=== PATIENT | female | born 1940 | race Caucasian/White ===

== ENCOUNTER 2020-04-28 09:39 | Outpatient (REF) | payer MEDICARE, BC, SELFPAY ==
[2020-04-28 11:19] LABS: Cholesterol 263 mg/dL; HDL Cholesterol 61 mg/dL; LDL Cholesterol Calculated 182 mg/dl; Triglycerides 100 mg/dL
[2020-04-28 11:42] LABS: Free T4 (Free Thyroxine) 1.31 ng/dL (0.71-1.85); Thyroid Stimulating Hormone 0.45 mIU/mL (0.32-4.0)
== END 2020-04-28 09:40 | disposition home or self-care (01) ==
LOC: HO.LAB 09:39
PROVIDERS: PCP Internal Medicine; Visit Provider Internal Medicine Endocrinology, Diabetes & Metabolism
DX: E03.9 Hypothyroidism, unspecified (principal); I10 Essential (primary) hypertension
CPT/HCPCS: 80061; 84439; 84443

== ENCOUNTER 2020-07-18 10:15 | Outpatient (REF) | payer MEDICARE, BC, SELFPAY ==
[2020-07-18 11:48] LABS: Cholesterol 284 mg/dL; HDL Cholesterol 60 mg/dL; LDL Cholesterol Calculated 189 mg/dl; Triglycerides 176 mg/dL
[2020-07-18 12:15] LABS: Free T4 (Free Thyroxine) 1.04 ng/dL (0.71-1.85)
== END 2020-07-18 10:16 | disposition home or self-care (01) ==
LOC: HO.HMGCLDS 10:15
PROVIDERS: PCP Internal Medicine; Visit Provider Internal Medicine Endocrinology, Diabetes & Metabolism
DX: E03.9 Hypothyroidism, unspecified (principal); E11.9 Type 2 diabetes mellitus without complications
CPT/HCPCS: 36415; 80061; 84439; 84443

== ENCOUNTER 2020-08-25 09:12 | Outpatient (REF) | payer MEDICARE, BC, SELFPAY ==
[2020-08-25 10:28] LABS: Cholesterol 256 mg/dL; HDL Cholesterol 60 mg/dL; LDL Cholesterol Calculated 167 mg/dl; Triglycerides 145 mg/dL
== END 2020-08-25 09:13 | disposition home or self-care (01) ==
LOC: HO.LAB 09:12
PROVIDERS: PCP Internal Medicine; Visit Provider Internal Medicine Cardiovascular Disease
DX: Z86.39 Personal history of other endocrine, nutritional and metabolic disease (principal)
CPT/HCPCS: 36415; 80061

== ENCOUNTER → 2020-11-20 09:43 | Outpatient (BNVA) | payer MEDICARE, BC, SELFPAY | PROVIDERS: PCP Internal Medicine; Visit Provider Internal Medicine Endocrinology, Diabetes & Metabolism | DX: E03.9 Hypothyroidism, unspecified (principal) | CPT/HCPCS: 99212 ==

== ENCOUNTER 2020-11-23 14:12 | Outpatient (REF) | payer MEDICARE, BC, SELFPAY ==
[2020-11-23 15:55] LABS: Free T4 (Free Thyroxine) 1.28 ng/dL (0.71-1.85); Thyroid Stimulating Hormone 0.32 uIU/mL (0.32-4.0)
== END 2020-11-23 14:13 | disposition home or self-care (01) ==
LOC: HO.LAB 14:12
PROVIDERS: PCP Internal Medicine; Visit Provider Internal Medicine Endocrinology, Diabetes & Metabolism
DX: E03.9 Hypothyroidism, unspecified (principal)
CPT/HCPCS: 36415; 84439; 84443

== ENCOUNTER → 2021-11-20 09:47 | Outpatient (BNVA) | payer MEDICARE, BC, SELFPAY | PROVIDERS: PCP Internal Medicine; Visit Provider Nurse Practitioner Gerontology | DX: E03.9 Hypothyroidism, unspecified (principal) | CPT/HCPCS: 99212 ==

== ENCOUNTER 2021-11-23 08:14 | Outpatient (REF) | payer MEDICARE, BC, SELFPAY ==
[2021-11-23 09:44] LABS: Free T4 (Free Thyroxine) 1.13 ng/dL (0.71-1.85); Thyroid Stimulating Hormone 0.96 uIU/mL (0.32-4.0)
== END 2021-11-23 08:15 | disposition home or self-care (01) ==
LOC: HO.LAB 08:14
PROVIDERS: PCP Internal Medicine; Visit Provider Nurse Practitioner Gerontology
DX: E03.9 Hypothyroidism, unspecified (principal)
CPT/HCPCS: 36415; 84439; 84443

== ENCOUNTER 2022-03-22 07:38 | Outpatient (REF) | payer MEDICARE, BC, SELFPAY ==
[2022-03-22 07:59] LABS: MANUAL DIFF FLAG NO
[2022-03-22 08:15] LABS: Basophils Absolute Auto 0.1 X10*3/uL (0.0-0.2); Basophils Percent Auto 0.7 % (0-2); Eosinophils Absolute Auto 0.1 X10*3/uL (0.0-0.4); Eosinophils Percent Auto 1.2 % (0-4); Hematocrit 42.8 % (37.0-47.0); Hemoglobin 14.3 g/dl (12.0-16.0); Imm Gran Abs Auto 0.02 X10*3/uL (0.00-0.03); Imm Gran Pct Auto 0.3 % (0.0-0.4); Lymphocytes Absolute Auto 2.1 X10*3/uL (1.2-4.9); Lymphocytes Percent Auto 31.2 % (20-40); Mean Corpuscular HGB Conc 33.4 g/dl (31.0-35.0); Mean Corpuscular Hemoglobin 29.9 pg (27.0-33.0); Mean Corpuscular Volume 89.5 fL (80.0-98.0); Mean Platelet Volume 11.1 fL (9.4-12.3); Monocytes Absolute Auto 0.5 X10*3/uL (0.1-1.2); Monocytes Percent Auto 6.7 % (2-11); Neutrophils Absolute Auto 4.1 x10*3/uL (2.0-8.3); Neutrophils Percent Auto 59.9 % (45-73); Platelet Count 220 X10*3/uL (160-400); Red Blood Count 4.78 X10*6/uL (4.20-5.50); Red Cell Distribution Width 13.2 % (11.0-16.0); White Blood Count 6.8 X10*3/uL (4.8-10.8)
[2022-03-22 08:45] LABS: Alanine Aminotransferase 15 U/L (0-31); Albumin Level 3.9 g/dL (3.5-5.0); Alkaline Phosphatase 92 U/L (39-117); Anion Gap 17 (12-20); Aspartate Amino Transferase 15 U/L (5-31); Bilirubin Total 0.7 mg/dL (0.0-1.0); Blood Urea Nitrogen 23 mg/dL (9-16); Calcium 9.2 mg/dL (8.4-10.2); Carbon Dioxide 29 mmol/L (22-29); Chloride 101 mmol/L (96-108); Cholesterol 310 mg/dL; Estimated Glomerular Filt Rate > 60; Glucose Fasting 92 mg/dL (60-99); HDL Cholesterol 59 mg/dL; LDL Cholesterol Calculated 227 mg/dl; Potassium 3.5 mmol/L (3.3-5.1); Sodium 143 mmol/L (135-145); Total Protein 6.5 g/dL (6.5-8.0); Triglycerides 121 mg/dL
[2022-03-22 09:06] LABS: Thyroid Stimulating Hormone 0.81 uIU/mL (0.32-4.0)
== END 2022-03-22 07:39 | disposition home or self-care (01) ==
LOC: HO.LAB 07:38
PROVIDERS: PCP Internal Medicine; Visit Provider Internal Medicine
DX: Z00.00 Encounter for general adult medical examination without abnormal findings (principal); Z13.0 Encounter for screening for diseases of the blood and blood-forming organs and certain disorders involving the immune mechanism
CPT/HCPCS: 36415; 80053; 80061; 84443; 85025

== ENCOUNTER 2022-09-20 10:23 | Outpatient (REF) | payer MEDICARE, BC, SELFPAY ==
[2022-09-20 10:34] LABS: MANUAL DIFF FLAG NO
[2022-09-20 11:28] LABS: Basophils Percent Auto 0.6 % (0-2); Eosinophils Absolute Auto 0.1 X10*3/uL (0.0-0.4); Eosinophils Percent Auto 0.9 % (0-4); Hematocrit 44.6 % (37.0-47.0); Hemoglobin 14.9 g/dl (12.0-16.0); Imm Gran Abs Auto 0.01 X10*3/uL (0.00-0.03); Imm Gran Pct Auto 0.2 % (0.0-0.4); Lymphocytes Percent Auto 30.3 % (20-40); Mean Corpuscular HGB Conc 33.4 g/dl (31.0-35.0); Mean Corpuscular Volume 92.9 fL (80.0-98.0); Mean Platelet Volume 11.6 fL (9.4-12.3); Monocytes Absolute Auto 0.5 X10*3/uL (0.1-1.2); Monocytes Percent Auto 7.5 % (2-11); Neutrophils Absolute Auto 3.9 x10*3/uL (2.0-8.3); Neutrophils Percent Auto 60.5 % (45-73); Platelet Count 239 X10*3/uL (160-400); Red Cell Distribution Width 12.5 % (11.0-16.0); White Blood Count 6.5 X10*3/uL (4.8-10.8)
[2022-09-20 12:01] LABS: Alanine Aminotransferase 13 U/L (0-31); Albumin Level 4.1 g/dL (3.5-5.0); Alkaline Phosphatase 82 U/L (39-117); Anion Gap 17 (12-20); Aspartate Amino Transferase 17 U/L (5-31); Blood Urea Nitrogen 17 mg/dL (9-16); Calcium 9.5 mg/dL (8.4-10.2); Carbon Dioxide 27 mmol/L (22-29); Chloride 103 mmol/L (96-108); Cholesterol 310 mg/dL; Estimated Glomerular Filt Rate > 60; Glucose Fasting 94 mg/dL (60-99); HDL Cholesterol 57 mg/dL; LDL Cholesterol Calculated 214 mg/dl; Potassium 3.9 mmol/L (3.3-5.1); Sodium 143 mmol/L (135-145); Total Protein 6.3 g/dL (6.5-8.0); Triglycerides 197 mg/dL
[2022-09-20 12:17] LABS: Thyroid Stimulating Hormone 0.31 uIU/mL (0.32-4.0)
== END 2022-09-20 10:24 | disposition home or self-care (01) ==
LOC: HO.LAB 10:23
PROVIDERS: PCP Internal Medicine; Visit Provider Internal Medicine
DX: Z13.0 Encounter for screening for diseases of the blood and blood-forming organs and certain disorders involving the immune mechanism (principal); E03.9 Hypothyroidism, unspecified; E78.5 Hyperlipidemia, unspecified; I10 Essential (primary) hypertension
CPT/HCPCS: 36415; 80053; 80061; 84443; 85025

== ENCOUNTER 2023-01-03 08:09 | Outpatient (REF) | payer MEDICARE, BC, SELFPAY ==
[2023-01-03 08:44] LABS: MANUAL DIFF FLAG NO
[2023-01-03 08:51] LABS: Basophils Percent Auto 0.6 % (0-2); Eosinophils Absolute Auto 0.1 X10*3/uL (0.0-0.4); Eosinophils Percent Auto 1.1 % (0-4); Hematocrit 39.9 % (37.0-47.0); Hemoglobin 13.5 g/dl (12.0-16.0); Imm Gran Abs Auto 0.01 X10*3/uL (0.00-0.03); Imm Gran Pct Auto 0.2 % (0.0-0.4); Lymphocytes Absolute Auto 1.5 X10*3/uL (1.2-4.9); Mean Corpuscular HGB Conc 33.8 g/dl (31.0-35.0); Mean Corpuscular Hemoglobin 31.4 pg (27.0-33.0); Mean Corpuscular Volume 92.8 fL (80.0-98.0); Monocytes Absolute Auto 0.4 X10*3/uL (0.1-1.2); Monocytes Percent Auto 8.2 % (2-11); Neutrophils Absolute Auto 3.2 x10*3/uL (2.0-8.3); Neutrophils Percent Auto 61.9 % (45-73); Platelet Count 178 X10*3/uL (160-400); Red Cell Distribution Width 12.2 % (11.0-16.0); White Blood Count 5.2 X10*3/uL (4.8-10.8)
[2023-01-03 09:23] LABS: Alanine Aminotransferase 12 U/L (0-31); Albumin Level 3.9 g/dL (3.5-5.0); Alkaline Phosphatase 86 U/L (39-117); Anion Gap 12 (12-20); Aspartate Amino Transferase 15 U/L (5-31); Blood Urea Nitrogen 13 mg/dL (9-16); Calcium 9.7 mg/dL (8.4-10.2); Carbon Dioxide 29 mmol/L (22-29); Chloride 106 mmol/L (96-108); Cholesterol 253 mg/dL; Estimated Glomerular Filt Rate > 60; Glucose Fasting 96 mg/dL (60-99); HDL Cholesterol 52 mg/dL; LDL Cholesterol Calculated 173 mg/dl; Potassium 3.9 mmol/L (3.3-5.1); Sodium 143 mmol/L (135-145); Total Protein 6.5 g/dL (6.5-8.0); Triglycerides 142 mg/dL
== END 2023-01-03 08:10 | disposition home or self-care (01) ==
LOC: HO.LAB 08:09
PROVIDERS: PCP Internal Medicine; Visit Provider Internal Medicine
DX: E03.9 Hypothyroidism, unspecified (principal); N28.9 Disorder of kidney and ureter, unspecified; D64.9 Anemia, unspecified; E78.5 Hyperlipidemia, unspecified
CPT/HCPCS: 36415; 80053; 80061; 84443; 85025

== ENCOUNTER 2023-02-26 03:24 | Emergency (ER) | payer MEDICARE, BC, SELFPAY ==
--- NOTE | 2023-02-26 | ECG_ITS ---
Test Reason : ABD PAIN Blood Pressure : / mmHG Vent. Rate : 070 BPM Atrial Rate : 070 BPM P-R Int : 166 ms QRS Dur : 072 ms QT Int : 402 ms P-R-T Axes : 060 -52 -06 degrees QTc Int : 434 ms Normal sinus rhythm Left axis deviation Abnormal ECG When compared with ECG of 20-NOV-2012 09:00, Heart rate has increased Referred By: Generic ED Physician Electronically Signed By:NICK CASTRO
--- NOTE | ~2023-02-26 | CT_ITS ---
EXAMINATION: CT ABDOMEN AND PELVIS WITHOUT CONTRAST CLINICAL INFORMATION: Left lower quadrant pain, hematuria, rule out ureterolithiasis. COMPARISON: None available. TECHNIQUE: Multidetector volumetric imaging was performed from the superior aspect of the liver through the pubic symphysis. Sagittal and coronal reformatted images were obtained on the technologist's workstation. This CT examination was performed using dose optimization techniques as appropriate, variously including the following: *Automated exposure control *Adjustment of mA and/or kV according to patient size (this includes techniques or standardized protocols for targeted exams where dose is matched to indication/reason for exam; i.e. extremities or head) *Use of iterative reconstruction technique DLP: 745 mGy-cm FINDINGS: LUNG BASES: The visualized lung bases are clear. There is a moderate to large hiatal hernia. A cardiac pacemaker is present with its lead in the right ventricle. LIVER, GALLBLADDER, AND BILIARY TREE: The liver is normal in size, shape, and attenuation. No focal hepatic lesion or biliary ductal dilatation is present. The gallbladder is unremarkable with no evidence of radiopaque gallstones, gallbladder wall thickening, or obvious pericholecystic inflammatory changes. PANCREAS: Unremarkable. SPLEEN: Not enlarged. A punctate granuloma is evident within the spleen ADRENAL GLANDS: Unremarkable. KIDNEYS AND URETERS: Moderate left hydronephrosis is present to the level of a punctate calculus at the left ureteropelvic junction. Left perirenal infiltration is present. The distal left ureter is collapsed. No right renal calculi are evident. An exophytic 21 mm round mass extends from the lateral interpolar cortex of the left kidney, isodense to the renal parenchyma. There is a 13 mm low-density lesion in the lower pole cortex of the right kidney, too small to characterize on this noncontrast examination. BLADDER: Unremarkable. GASTROINTESTINAL TRACT: The small and large bowel are unremarkable. The appendix is nonvisualized. ABDOMINAL WALL: No significant hernia is appreciated. LYMPH NODES: Normal. VASCULAR: There are aortoiliac calcifications but no aneurysm is evident. PELVIC VISCERA: The uterus is atrophic. There are no adnexal masses. OSSEOUS STRUCTURES: Moderate to severe degenerative disc disease is present throughout the lumbar spine, and in the lower thoracic spine, most prominent at T8-T9 and T9-T10. There is an intraosseous hemangioma in the L1 vertebral body. CT/CT abdomen pelvis wo IV con IMPRESSION: 1. Acute left obstructive uropathy with moderate hydronephrosis to the level of a punctate left ureteropelvic junction calculus. 2. Exophytic left renal 21 mm mass, incompletely characterized on this noncontrast study but isodense to parenchyma. Pre and postcontrast abdominal CT or MR is suggested to further characterize this lesion, as a solid renal mass (neoplasm) is not excluded. A low density 13 mm lesion in the lower pole the right kidney is too small to characterize. 3. Incidental findings include thoracolumbar degenerative disc disease, hiatal hernia formation, and splenic granuloma. 4. The above acute findings were reported at the time of interpretation on 02/26/2023 at 9:[address] Aries Gama, in the [facility]. Fleischner guidelines were followed.
--- NOTE | ~2023-02-26 | CT_ITS ---
EXAMINATION: CT ABDOMEN AND PELVIS WITH CONTRAST CLINICAL INFORMATION: Left flank pain, abnormal noncontrast CT with left renal mass COMPARISON: Prior noncontrast CT of earlier on 02/26/2023 TECHNIQUE: Multidetector volumetric images were obtained from the superior aspect of the liver through the pubic symphysis following administration 85 mL of Omnipaque 350 intravenous contrast. Sagittal and coronal reformatted images were obtained on the technologist's workstation. Oral contrast: No This CT examination was performed using dose optimization techniques as appropriate, variously including the following: *Automated exposure control *Adjustment of mA and/or kV according to patient size (this includes techniques or standardized protocols for targeted exams where dose is matched to indication/reason for exam; i.e. extremities or head) *Use of iterative reconstruction technique DLP: 780 mGy-cm FINDINGS: LUNG BASES: Minimal linear atelectasis or scar at the right lung base. Moderate to large hiatal hernia. Pacemaker lead in the right ventricle. LIVER, GALLBLADDER, AND BILIARY TREE: The liver is normal in size, shape, and attenuation. No focal hepatic lesion or biliary ductal dilatation is present. The gallbladder is unremarkable with no evidence of radiopaque gallstones, gallbladder wall thickening, or obvious pericholecystic inflammatory changes. PANCREAS: Unremarkable. SPLEEN: Punctate splenic granuloma. ADRENAL GLANDS: Unremarkable. KIDNEYS AND URETERS: Moderate left hydronephrosis is again evident to the level of the left ureteropelvic junction where a punctate calculus is again visualized. The left ureter is collapsed. The previously seen exophytic left renal mid pole 23 mm lesion does not enhance and reflects a cyst. Similarly, an 11 mm hyperdense lesion in the lower pole the left kidney does not enhance and reflects a hemorrhagic cyst. A 14 mm cyst is present in the lower pole of the right kidney. Other small low density lesions in both kidneys are presumably cysts, though too small to characterize. BLADDER: Unremarkable. GASTROINTESTINAL TRACT: The small and large bowel are unremarkable. The appendix is nonvisualized. ABDOMINAL WALL: No significant hernia is appreciated. LYMPH NODES: Normal. VASCULAR: Aortoiliac atheromatous atherosclerotic calcifications but no aneurysm. PELVIC VISCERA: Atrophic uterus. No adnexal masses. OSSEOUS STRUCTURES: Moderate to severe degenerative changes in the lower thoracic and lumbar spine. No suspicious bone lesions. CT/CT abdomen pelvis w IV con IMPRESSION: 1. Acute left obstructive uropathy with moderate hydronephrosis to the level of a punctate calculus at the left ureteropelvic junction. 2. Bilateral renal cysts, but no enhancing renal masses. No additional imaging follow-up is needed. 3. No significant change since precontrast CT of earlier on 02/26/2023. Fleischner guidelines were followed.
[2023-02-26 03:27] VITALS: BP 180/90; PULSE 72; O2SAT 98
[2023-02-26 03:34] VITALS: BP 187/67; PULSE 68; RESP 18; TEMP 36.5; O2SAT 98; BMI 40.7
[2023-02-26 03:53] LABS: MANUAL DIFF FLAG NO
[2023-02-26 03:54] LABS: Basophils Percent Auto 0.2 % (0-2); Eosinophils Percent Auto 0.3 % (0-4); Hematocrit 37.4 % (37.0-47.0); Hemoglobin 12.2 g/dl (12.0-16.0); Imm Gran Abs Auto 0.03 X10*3/uL (0.00-0.03); Imm Gran Pct Auto 0.3 % (0.0-0.4); Lymphocytes Percent Auto 10.3 % (20-40); Mean Corpuscular HGB Conc 32.6 g/dl (31.0-35.0); Mean Corpuscular Hemoglobin 29.4 pg (27.0-33.0); Mean Corpuscular Volume 90.1 fL (80.0-98.0); Mean Platelet Volume 11.3 fL (9.4-12.3); Monocytes Absolute Auto 0.6 X10*3/uL (0.1-1.2); Monocytes Percent Auto 5.8 % (2-11); Neutrophils Absolute Auto 8.4 x10*3/uL (2.0-8.3); Neutrophils Percent Auto 83.1 % (45-73); Platelet Count 231 X10*3/uL (160-400); Red Blood Count 4.15 X10*6/uL (4.20-5.50); Red Cell Distribution Width 12.6 % (11.0-16.0); White Blood Count 10.1 X10*3/uL (4.8-10.8)
[2023-02-26 04:15] LABS: Alanine Aminotransferase 12 U/L (0-31); Alkaline Phosphatase 106 U/L (39-117); Anion Gap 15 (12-20); Aspartate Amino Transferase 24 U/L (5-31); Bilirubin Direct 0.2 mg/dL (0.0-0.5); Bilirubin Total 0.6 mg/dL (0.0-1.0); Blood Urea Nitrogen 24 mg/dL (9-16); Calcium 9.9 mg/dL (8.4-10.2); Carbon Dioxide 25 mmol/L (22-29); Chloride 105 mmol/L (96-108); Creatinine Clr Calc Pharmacy 54.5; Estimated Glomerular Filt Rate > 60; Glucose Random 158 mg/dL (60-115); Lipase 24 U/L (8-78); Potassium 3.8 mmol/L (3.3-5.1); Sodium 141 mmol/L (135-145)
--- NOTE | 2023-02-26 05:42 | PC.NURSE ---
pt reporting pain and discomfort to LLQ abdomen, pt offered tylenol or motrin for the pain but declines. offered warm blanket/warm heating pack but declines. call banks within reach. pt waiting to be seen by ED provider for further orders.
[2023-02-26 06:20] VITALS: BP 174/82; PULSE 74; RESP 16; TEMP 37.1; O2SAT 95
[2023-02-26 07:39] LABS: Appearance Urine Clear; Glucose Urine UA Negative (Negative); Leukocyte Esterase Urine Trace (Negative); Nitrite Urine Negative (Negative); PH 6.5 (5.0-9.0); UMIC TRIGGER UACC YES; Urine Blood Large (3+) (Negative); Urine Ketones 15 mg/dL (Negative); Urine Protein 30 (1+) mg/dL (Neg-Trace)
[2023-02-26 07:40] LABS: Color Urine PINK
[2023-02-26 07:41] LABS: Bacteria Urine None Seen (None Seen); Hyaline Casts Urine 0-2 /LPF (0-2); RBC Urine >20 /HPF (0-2); Squamous Epithelial Cell Urine 0-2 /HPF (0-2); WBC Urine 0-5 /HPF (0-5)
--- NOTE | 2023-02-26 08:27 | ED_ITS ---
HPI - Abdominal Pain General Chief Complaint: Abdominal Pain Stated Complaint: abd pain Time Seen by Provider: 02/26/23 06:57 Source: patient and EMS Mode of arrival: EMS Limitations: no limitations History of Present Illness HPI narrative: 82-year-old female presents with left lower quadrant abdominal pain. Pain started all the sudden last night. Pain is severe. The pain is constant. Worsened by movement. Not associated with urinary frequency, urgency or dysuria. It is associated with nausea vomiting. She denies any diarrhea constipation. Pain does not radiate. No prior treatment. She was brought in by EMS. Patient has noted some blood tinged urine. Related Data Home Medications Medication Instructions Recorded Confirmed cholecalciferol (vitamin D3) 25 25 mcg PO DAILY 05/17/20 01/08/23 mcg (1,000 unit) capsule esomeprazole magnesium 20 mg 20 mg PO DAILY 05/17/20 01/08/23 capsule,delayed release (Nexium 24HR) ysyxuscr-oakfiqx-aibl-lutein tablet 1 tab PO DAILY 11/20/21 01/08/23 Previous Rx's Medication Instructions Recorded Synthroid 88 mcg tablet 88 mcg PO DAILY 90 days #90 tabs 08/13/22 (levothyroxine) metoprolol tartrate 50 mg tablet 50 mg PO BID #180 tabs 12/29/22 Allergies Allergy/AdvReac Type Severity Reaction Status Date / Time AZALEA Inhibitors Allergy Unknown Unknown Verified 02/26/23 03:40 acetaminophen [From Vicodin] Allergy Unknown Unknown Verified 02/26/23 03:40 almond Allergy Unknown Unknown Verified 02/26/23 03:40 amoxicillin Allergy Unknown GI upset Verified 02/26/23 03:40 azithromycin Allergy Unknown Unknown Verified 02/26/23 03:40 colesevelam [WelChol] Allergy Unknown Unknown Verified 02/26/23 03:40 hydrocodone [From Vicodin] Allergy Unknown Unknown Verified 02/26/23 03:40 lactose Allergy Unknown Unknown Verified 02/26/23 03:40 Review of Systems Review of Systems CONSTITUTIONAL: Denies weight loss, fever and chills. HEENT: Denies changes in vision and hearing. RESPIRATORY: Denies SOB and cough. CV: Denies palpitations no CP. GI: + abdominal pain, nausea, vomiting - diarrhea. : Denies dysuria and urinary frequency. MSK: Denies myalgia and joint pain. SKIN: Denies rash and pruritus. NEUROLOGICAL: Denies headache and syncope. PSYCHIATRIC: Denies recent changes in mood. Denies anxiety and depression. All other ROS are negative unless in HPI PMFSH Past Medical History Medical History Hyperlipidemia Hypothyroidism Surgical History Cardiac pacemaker History of appendectomy Family History Family History Father Myocardial infarction Mother CHF (congestive heart failure) Social History Social History Housing: Apartment Alcohol intake: never Patient Tobacco Use Status: Never used Tobacco Smoked in Last 30 Days: No e-Cigarette/Vaping Use: Never Used Second Hand Smoke Exposure: No Use of substances other than those prescribed or required for medical reasons: No Advance Directives: No Advance Directives Information Provided: No service: No Current occupational status: retired Cognitive needs: No Hearing needs: No Vision needs: Yes Physical Exam ED Vital Signs: Vital Signs - 24 hr 02/26/23 03:34 02/26/23 06:20 02/26/23 08:44 Temperature 97.7 F 98.7 F 98.1 F Pulse Rate 68 74 81 Respiratory Rate 18 16 16 Blood Pressure 187/67 H 174/82 H 153/84 H Pulse Oximetry 98 95 95 Oxygen Delivery Method Room Air Room Air Room Air BMI result Body Mass Index 40.7 GEN: Well developed, no acute distress, alert, oriented HEENT: Normocephalic, atraumatic, normal external ears, nose appears normal, no oropharyngeal edema or exudates Eyes: Normal to appearance Neck: Supple, no lymphadenopathy Respiratory: Talks in complete sentences, no respiratory distress, clear to auscultation bilaterally Cardiovascular: Regular rate and rhythm, no murmurs rubs or gallops Abdomen: Soft, nontender, left lower quadrant tenderness, no guarding, no rebound Back: No CVA tenderness Extremities: No clubbing cyanosis or edema Neurologic: No focal neurologic deficits, cranial nerves 2-12 intact, strength is 5/5 bilaterally Skin: No rash Course Reevaluation(s) Reevaluation #1: Verbal report from radiology reports a left renal mass which I also identified on CT scan. I have ordered a contrast CT is follow-up. Patient aware of results. Time: 09:39 Reevaluation #2: Workup is complete. CT scan is demonstrative of a renal cyst, no evidence of malignancy. This was discussed with the patient. I discussed appropriate management of ureterolithiasis and referred her to a urologist. Patient is comfortable at this time. Will be discharging now. Time: 11:37 Medical Decision Making Medical Decision Making MDM Narrative: 82-year-old female presents with left lower quadrant abdominal pain. Examination has tenderness. There is no CVA tenderness. Differential diagnosis includes diverticulitis, renal colic, ureterolithiasis, pyelonephritis, colitis, IBD, IBS, epiploic appendagitis, mesenteric adenitis. Plan will be to obtain routine laboratory analysis, CT scan, analgesics and supportive therapy as needed. Differential Diagnosis Differential Diagnoses: The differential diagnosis associated with the presentation includes (See above) Admission/Observation Consideration of admission/observation: Escalation of care including admission/observation considered Lab Data MDM Lab Attestation statement: I reviewed the patient's lab results. 02/26/23 03:49 02/26/23 03:49 Labs: Lab Results 02/26/23 02/26/23 02/26/23 Range/Units 03:49 03:49 06:59 WBC 10.1 (4.8-10.8) X10*3/uL RBC 4.15 L (4.20-5.50) X10*6/uL Hgb 12.2 (12.0-16.0) g/dl Hct 37.4 (37.0-47.0) % MCV 90.1 (80.0-98.0) fL MCH 29.4 (27.0-33.0) pg MCHC 32.6 (31.0-35.0) g/dl RDW 12.6 (11.0-16.0) % Plt Count 231 D (160-400) X10*3/uL MPV 11.3 (9.4-12.3) fL Immature Gran % (Auto) 0.3 (0.0-0.4) % Neut % (Auto) 83.1 H (45-73) % Lymph % (Auto) 10.3 L (20-40) % Blanco % (Auto) 5.8 (2-11) % Eos % (Auto) 0.3 (0-4) % Baso % (Auto) 0.2 (0-2) % Lymph # (Auto) 1.0 L (1.2-4.9) X10*3/uL Blanco # (Auto) 0.6 (0.1-1.2) X10*3/uL Eos # (Auto) 0.0 (0.0-0.4) X10*3/uL Baso # (Auto) 0.0 (0.0-0.2) X10*3/uL Abs Immat Gran (auto) 0.03 (0.00-0.03) X10*3/uL Absolute Neuts (auto) 8.4 H (2.0-8.3) x10*3/uL Absolute Nucleated RBC 0.000 (0.0-0.012) X10*3/uL Nucleated RBC % (auto) 0.0 (0.0-0.2) /100WBC Sodium 141 (135-145) mmol/L Potassium 3.8 (3.3-5.1) mmol/L Chloride 105 (96-108) mmol/L Carbon Dioxide 25 (22-29) mmol/L Anion Gap 15 (12-20) BUN 24 H (9-16) mg/dL Creatinine 0.88 (0.5-1.4) mg/dL Estim Creat Clear Calc 54.5 Estimated GFR > 60 Random Glucose 158 H (60-115) mg/dL Calcium 9.9 (8.4-10.2) mg/dL Total Bilirubin 0.6 (0.0-1.0) mg/dL Direct Bilirubin 0.2 (0.0-0.5) mg/dL AST 24 (5-31) U/L ALT 12 (0-31) U/L Alkaline Phosphatase 106 (39-117) U/L Total Protein 7.0 (6.5-8.0) g/dL Albumin 4.0 (3.5-5.0) g/dL Lipase 24 (8-78) U/L Urine Color PINK Urine Appearance Clear Urine pH 6.5 (5.0-9.0) Ur Specific Reading 1.020 (1.005-1.025) Urine Protein 30 (1+) H (Neg-Trace) mg/dL Urine Glucose (UA) Negative (Negative) mg/dL Urine Ketones 15 (Negative) mg/dL Urine Blood Large (3+) H (Negative) Urine Nitrite Negative (Negative) Ur Leukocyte Esterase Trace H (Negative) Urine RBC >20 H (0-2) /HPF Urine WBC 0-5 (0-5) /HPF Ur Squamous Epith Cells 0-2 (0-2) /HPF Urine Bacteria None Seen (None Seen) Hyaline Casts 0-2 (0-2) /LPF Significant findings cleaned hematuria Independent Interpretation I performed an independent interpretation of an: EKG (Normal sinus rhythm heart rate 70, normal intervals, no acute ST elevations depressions, T-wave changes) and CT Scan (Left renal exophytic mass, punctate left UVJ see ureterolithiasis) Radiology Impression Discussion of test interpretation with radiology: I have reviewed the radiologist's reading. Radiologist Impression: CT/CT abdomen pelvis wo IV con IMPRESSION: ? 1. Acute left obstructive uropathy with moderate hydronephrosis to the level of a punctate left ureteropelvic junction calculus. ? 2. Exophytic left renal 21 mm mass, incompletely characterized on this noncontrast study but isodense to parenchyma. Pre and postcontrast abdominal CT or MR is suggested to further characterize this lesion, as a solid renal mass (neoplasm) is not excluded. A low density 13 mm lesion in the lower pole the right kidney is too small to characterize. ? 3. Incidental findings include thoracolumbar degenerative disc disease, hiatal hernia formation, and splenic granuloma. ? 4. The above acute findings were reported at the time of interpretation on 02/26/2023 at 9:[address] Aries Gama, in the [facility]. ? Fleischner guidelines were followed. Dictated By: Clemente Wilson MD Signed By: <Electronically signed by Clemente Wilson MD in [place]> 02/26/[address]/CT abdomen pelvis w IV con IMPRESSION: ? 1. Acute left obstructive uropathy with moderate hydronephrosis to the level of a punctate calculus at the left ureteropelvic junction. ? 2. Bilateral renal cysts, but no enhancing renal masses. No additional imaging follow-up is needed. ? 3. No significant change since precontrast CT of earlier on 02/26/2023. ? Fleischner guidelines were followed. Dictated By: Clemente Wilson MD Signed By: <Electronically signed by Clemente Wilson MD in OV> 02/26/23 1107 Independent Historian Clinical information obtained from an independent historian. History obtained from or confirmed by: EMS Prescription Management I considered prescription management with: Pain Medication and Antibiotic Medications Administered Discontinued Medications Generic Name Dose Route Start Last Admin Trade Name Freq PRN Reason Stop Dose Admin Iohexol 100 ml 02/26/23 10:46 02/26/23 10:47 Iohexol 350 Mg/Ml 100 Ml Infus..Btl IV 02/26/23 10:47 100 ml ONCE ONE Administration Discharge Plan Discharge Clinical Impression: Abdominal pain, Ureterolithiasis, Renal cyst Patient Disposition: Home, Self-Care Instructions: Abdominal Pain (ED), Kidney Cyst (ED), Renal Colic (ED), Ureteral Stones (ED) Prescriptions: No Action levothyroxine [Synthroid] 88 mcg tablet 88 mcg PO DAILY 90 Days Qty: 90 3RF metoprolol tartrate 50 mg tablet 50 mg PO BID Qty: 180 8RF cholecalciferol (vitamin D3) 25 mcg (1,000 unit) capsule 25 mcg PO DAILY esomeprazole magnesium [Nexium 24HR] 20 mg capsule,delayed release(DR/EC) 20 mg PO DAILY yhomelxu-rdmruzg-angn-lutein Tablet 1 tab PO DAILY Referrals: Alec Brunson MD [Physician] - 5 days
[2023-02-26 08:44] VITALS: BP 153/84; PULSE 81; RESP 16; TEMP 36.7; O2SAT 95
--- NOTE | 2023-02-26 09:58 | PC.NURSE ---
assumed care of pt at 0700. pt a&o x4, calm, and cooperative. resting on stretcher in no apparent distress. sts pain has been relieved. call banks within reach. all pt needs met at this time
--- NOTE | 2023-02-26 10:05 | PC.NURSE ---
pt son left phone number with this rn for an update when available. cell: [phone]
[2023-02-26] MEDS: iohexoL 350 MG/ML 100 ML INFUS..BTL IV (10:47)
[2023-02-26 11:37] VITALS: BP 151/77; PULSE 81; RESP 16; TEMP 37; O2SAT 97
== END 2023-02-26 12:23 | disposition home or self-care (01) ==
PROVIDERS: Emergency Provider Emergency Medicine; PCP Internal Medicine
DX: N13.2 Hydronephrosis with renal and ureteral calculous obstruction (principal); N28.1 Cyst of kidney, acquired; R10.32 Left lower quadrant pain; I10 Essential (primary) hypertension; E78.5 Hyperlipidemia, unspecified; Z95.0 Presence of cardiac pacemaker; Z79.899 Other long term (current) drug therapy
CPT/HCPCS: 36415; 74176; 74177; 80048; 80076; 81001; 83690; 85025; 93005; 99284; Q9967

== ENCOUNTER 2023-03-19 10:19 | Outpatient (AMB) | payer MEDICARE, BC, SELFPAY ==
--- NOTE | 2023-03-19 10:21 | A.OFFPC_ITS ---
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 Accompanied by: Self / Same As Patient Allergies AZALEA Inhibitors Allergy (Unknown, Verified 03/19/23 10:23) Unknown acetaminophen [From Vicodin] Allergy (Unknown, Verified 03/19/23 10:23) Unknown almond Allergy (Unknown, Verified 03/19/23 10:23) Unknown amoxicillin Allergy (Unknown, Verified 03/19/23 10:23) GI upset azithromycin Allergy (Unknown, Verified 03/19/23 10:23) Unknown colesevelam [WelChol] Allergy (Unknown, Verified 03/19/23 10:23) Unknown hydrocodone [From Vicodin] Allergy (Unknown, Verified 03/19/23 10:23) Unknown lactose Allergy (Unknown, Verified 03/19/23 10:23) Unknown Medication List - Last Reconciled 03/19/23 by Jesus Moreno MD cholecalciferol (vitamin D3) 25 mcg PO DAILY esomeprazole magnesium (Nexium 24HR) 20 mg PO DAILY hydrocodone-acetaminophen 7.5-300 mg 1 tab PO Q8H PRN metoprolol tartrate 50 mg PO BID sgdltzcv-rlfyrro-zkfq-lutein 1 tab PO DAILY oxycodone 5 mg PO Q4H PRN phenazopyridine 200 mg PO TID Synthroid (levothyroxine) 88 mcg PO DAILY 90 days NS Tobacco use date assessed: 01/08/23 Fall risk assessment: No Falls in past year Last assessed Fall Risk: 03/19/23 Dental Screening Dental Screen Date: 03/19/23 Did you have a dental visit in the last 12 months?: Yes Did you have a dental problem in the last 6 months where you did not have access to dental care?: No Was dental information given to patient?: Patient has dentist HPI Low BP HPI Details hypertension nephrolithiasis and hypothyr; PFSH Medical History Hypothyroidism Hyperlipidemia Surgical History Cardiac pacemaker History of appendectomy Family History Father Myocardial infarction Mother CHF (congestive heart failure) Social History Housing: Apartment Alcohol intake: never Patient Tobacco Use Status: Never used Tobacco e-Cigarette/Vaping Use: Never Used Second Hand Smoke Exposure: No service: No Current occupational status: retired Cognitive needs: No Hearing needs: No Vision needs: Yes Questionnaire PHQ-9 Over the last 2 weeks, how often have you been bothered by any of the following problems? 1. Little interest or pleasure in doing things: not at all 2. Feeling down, depressed, or hopeless: not at all 3. Trouble falling or staying asleep, or sleeping too much: not at all 4. Feeling tired or having little energy: not at all 5. Poor appetite or overeating: not at all 6. Feeling bad about yourself - or that you are a failure or have let yourself or your family down: not at all 7. Trouble concentrating on things, such as reading the newspaper or watching television: not at all 8. Moving or speaking so slowly that other people could have noticed. Or the opposite - being so fidgety or restless that you have been moving around a lot more than usual: not at all 9. Thoughts that you would be better off or of hurting yourself in some way: not at all Total score: 0 Depression Screening Interpretation: Negative 65388 - PHQ-9 Billing: Yes Source: Developed by Drs. Juan Funes, Omkar Fabian and colleagues, with an educational carroll from [employer]. Thrive Questionnaire Date Thrive assessed: 01/08/23 AUDIT C Alcohol Use Questionnaire (AUDIT-C) 1. How often do you have a drink containing alcohol?: Monthly or less 2. How many drinks containing alcohol do you have on a typical day when you are drinking?: 1 or 2 3. How often do you have six or more drinks on one occasion?: Never Total Score: 1 Score Reviewed/Action Taken: Yes ROSELYN-7 AMB Questionnaire ROSELYN-7 Date ROSELYN - 7 assessed: 01/08/23 Source: Developed by Drs. Juan L. Kaela Funes, Omkar Constantino and colleagues, with an educational carroll from [employer]. Review of Systems Const Denies chills, Denies headache(s) and Denies weight loss ENT Denies headache(s) Card Denies chest pain, Denies syncope, Denies irregular heart rhythm and Denies dyspnea Resp Denies chest congestion, Denies cough and Denies dyspnea GI Denies abdominal pain, Denies change in stool character, Denies nausea and Denies vomiting Musc Denies deformity and Denies joint swelling Neuro Denies syncope and Denies headache(s) Physical exam (Primary Care) Vital Signs: Last Vital Signs Pulse 74 03/19/23 10:22 BP 136/74 03/19/23 10:22 Pulse Ox 98 03/19/23 10:22 Oxygen Delivery Method Room Air 03/19/23 10:22 BMI result Body Mass Index 37.4 Tobacco/Smoking Status: Tobacco use Status Tobacco use date assessed 01/08/23 03/19/23 10:22 Patient Tobacco Use Status Never used Tobacco 03/19/23 10:22 e-Cigarette/Vaping Use Never Used 03/19/23 10:22 PHQ-9: PHQ-9 Score PHQ-9: Total score 0 03/19/23 10:31 Depression Screening Interpretation: Negative Thrive Assessment: Date of Thrive Assessment Date Thrive assessed 01/08/23 03/19/23 10:22 Const General: cooperative, comfortable, no acute distress and alert Neck Neck: Yes no lymphadenopathy Thyroid: Thyroid normal Resp Effort & Inspection: normal respiratory effort Auscultation: clear to auscultation bilaterally Percussion: percussion normal Cardio Jugular venous distension: no JVD Palpation: normal PMI Rate: regular rate Rhythm: regular rhythm Heart sounds: S1 normal heart sound present and S2 normal heart sound present GI Inspection: Yes normal to inspection Palpation (GI): No hepatosplenomegaly present Skin General skin exam: no rashes or lesions noted Extrem General: Yes no clubbing, cyanosis or edema Assessment and Plan Assessment & Plan (1) Hypertension: Code(s): I10 - Essential (primary) hypertension Qualifiers: Hypertension type: primary hypertension Qualified Code(s): I10 - Essential (primary) hypertension Plan: stable; same rx (2) Hypothyroidism: Code(s): E03.9 - Hypothyroidism, unspecified Qualifiers: Hypothyroidism type: acquired Qualified Code(s): E03.9 - Hypot hyroidism, unspecified Plan: stable; same rx (3) Nephrolithiasis: Code(s): N20.0 - Calculus of kidney Plan: as per neph Medications: New hydrochlorothiazide 12.5 mg PO DAILY 90 tabs 3RF Coding Level of Care Code Est Pt Level 4 (02230) Diagnoses Primary hypertension I10 Hypertension type: primary hypertension Acquired hypothyroidism E03.9 Hypothyroidism type: acquired Nephrolithiasis N20.0
[2023-03-19 10:22] VITALS: BP 136/74; PULSE 74; O2SAT 98; BMI 37.4
== END 2023-03-19 10:39 | disposition home or self-care (01) ==
PROVIDERS: PCP Internal Medicine; Visit Provider Internal Medicine
DX: I10 Essential (primary) hypertension (principal); E03.9 Hypothyroidism, unspecified; N20.0 Calculus of kidney
CPT/HCPCS: 99214

== ENCOUNTER 2023-03-21 07:14 | Outpatient (REF) | payer MEDICARE, BC, SELFPAY ==
[2023-03-21 08:47] LABS: Anion Gap 13 (12-20); Blood Urea Nitrogen 19 mg/dL (9-16); Calcium 10.6 mg/dL (8.4-10.2); Carbon Dioxide 28 mmol/L (22-29); Chloride 104 mmol/L (96-108); Estimated Glomerular Filt Rate 58; Magnesium 1.9 mg/dL (1.6-2.6); Potassium 3.5 mmol/L (3.3-5.1); Sodium 141 mmol/L (135-145); Uric Acid 4.3 mg/dL (2.4-5.7)
== END 2023-03-21 07:15 | disposition home or self-care (01) ==
LOC: HO.LAB 07:14
PROVIDERS: Absent Provider Nurse Practitioner Family; PCP Internal Medicine; Visit Provider Internal Medicine
DX: N20.0 Calculus of kidney (principal)
CPT/HCPCS: 36415; 80051; 82310; 82565; 83735; 84520; 84550

== ENCOUNTER 2023-06-30 11:27 | Outpatient (AMB) | payer MEDICARE, BC, SELFPAY ==
[2023-06-30 11:27] VITALS: BP 130/84; PULSE 65; O2SAT 97; BMI 38.9
--- NOTE | 2023-06-30 11:27 | A.OFFPC_ITS ---
Vital Signs 06/30/23 11:27 Height 5 ft 1 in Weight 206 lb BMI 38.9 BP 130/84 Blood Pressure Location Rt brachial Position Sitting Pulse 65 Pulse Source Pulse Oximeter Pulse Oximetry (%) 97 Oxygen Delivery Method Room Air Intake Visit Reasons: 3 month f/u Boiler Shop Supervisor Required: No Data Control Assistant: Not Required per policy Accompanied by: Self / Same As Patient Allergies oxybutynin Allergy (Intermediate, Verified 06/30/23 11:35) Unknown AZALEA Inhibitors Allergy (Unknown, Verified 06/30/23 11:28) Unknown acetaminophen [From Vicodin] Allergy (Unknown, Verified 06/30/23 11:28) Unknown almond Allergy (Unknown, Verified 06/30/23 11:28) Unknown amoxicillin Allergy (Unknown, Verified 06/30/23 11:28) GI upset azithromycin Allergy (Unknown, Verified 06/30/23 11:28) Unknown colesevelam [WelChol] Allergy (Unknown, Verified 06/30/23 11:28) Unknown hydrocodone [From Vicodin] Allergy (Unknown, Verified 06/30/23 11:28) Unknown lactose Allergy (Unknown, Verified 06/30/23 11:28) Unknown Medication List - Last Reconciled 06/30/23 by Jesus Moreno MD cholecalciferol (vitamin D3) 25 mcg PO DAILY esomeprazole magnesium (Nexium 24HR) 20 mg PO DAILY hydrochlorothiazide 12.5 mg PO DAILY hydrocodone-acetaminophen 7.5-300 mg 1 tab PO Q8H PRN metoprolol tartrate 50 mg PO BID ruxlrxzf-qdioegt-qvbu-lutein 1 tab PO DAILY oxycodone 5 mg PO Q4H PRN phenazopyridine 200 mg PO TID Synthroid (levothyroxine) 88 mcg PO DAILY 90 days NS Tobacco use date assessed: 01/08/23 Fall risk assessment: No Falls in past year Last assessed Fall Risk: 06/30/23 Dental Screening Dental Screen Date: 06/30/23 Did you have a dental visit in the last 12 months?: Yes Did you have a dental problem in the last 6 months where you did not have access to dental care?: No Was dental information given to patient?: Patient has dentist HPI 3 month f/u HPI Details HTN on Rx; doing well; compliant [facility] Medical History Hypothyroidism Hyperlipidemia Surgical History Cardiac pacemaker History of appendectomy Family History Father Myocardial infarction Mother CHF (congestive heart failure) Social History Housing: Apartment Alcohol intake: never Patient Tobacco Use Status: Never used Tobacco e-Cigarette/Vaping Use: Never Used Second Hand Smoke Exposure: No service: No Current occupational status: retired Cognitive needs: No Hearing needs: No Vision needs: Yes Questionnaire Thrive Questionnaire Date Thrive assessed: 01/08/23 ROSELYN-7 AMB Questionnaire ROSELYN-7 Date ROSELYN - 7 assessed: 01/08/23 Source: Developed by Drs. Juan Funes, Kaela Keenan, Omkar Constantino and colleagues, with an educational carroll from [employer]. Review of Systems Const Denies chills, Denies headache(s) and Denies weight loss ENT Denies headache(s) Card Denies chest pain, Denies syncope, Denies irregular heart rhythm and Denies dyspnea Resp Denies chest congestion, Denies cough and Denies dyspnea GI Denies abdominal pain, Denies change in stool character, Denies nausea and Denies vomiting Musc Denies deformity and Denies joint swelling Neuro Denies syncope and Denies headache(s) Physical exam (Primary Care) Vital Signs: Last Vital Signs Pulse 65 06/30/23 11:27 BP 130/84 06/30/23 11:27 Pulse Ox 97 06/30/23 11:27 Oxygen Delivery Method Room Air 06/30/23 11:27 BMI result Body Mass Index 38.9 Tobacco/Smoking Status: Tobacco use Status Tobacco use date assessed 01/08/23 06/30/23 11:37 Patient Tobacco Use Status Never used Tobacco 06/30/23 11:37 e-Cigarette/Vaping Use Never Used 06/30/23 11:37 Thrive Assessment: Date of Thrive Assessment Date Thrive assessed 01/08/23 06/30/23 11:37 Const General: cooperative, comfortable, no acute distress and alert Neck Neck: Yes no lymphadenopathy Thyroid: Thyroid normal Resp Effort & Inspection: normal respiratory effort Auscultation: clear to auscultation bilaterally Percussion: percussion normal Cardio Jugular venous distension: no JVD Palpation: normal PMI Rate: regular rate Rhythm: regular rhythm Heart sounds: S1 normal heart sound present and S2 normal heart sound present GI Inspection: Yes normal to inspection Palpation (GI): No hepatosplenomegaly present Skin General skin exam: no rashes or lesions noted Extrem General: Yes no clubbing, cyanosis or edema Assessment and Plan Assessment & Plan (1) Hypertension: Code(s): I10 - Essential (primary) hypertension Qualifiers: Hypertension type: primary hypertension Qualified Code(s): I10 - Essential (primary) hypertension Plan: stable; same rx Coding Level of Care Code Est Pt Level 3 (53730) Diagnoses Primary hypertension I10 Hypertension type: primary hypertension
== END 2023-06-30 11:46 | disposition home or self-care (01) ==
PROVIDERS: PCP Internal Medicine; Visit Provider Internal Medicine
DX: I10 Essential (primary) hypertension (principal)
CPT/HCPCS: 99213

== ENCOUNTER 2023-08-22 09:34 | Outpatient (REF) | payer MEDICARE, BC, SELFPAY ==
[2023-08-22 11:15] LABS: Cholesterol 302 mg/dL (<200); HDL Cholesterol 65 mg/dL (>40); LDL Cholesterol Calculated 212 mg/dL (<100); Triglycerides 126 mg/dL (<150)
[2023-08-22 11:29] LABS: Thyroid Stimulating Hormone 0.26 uIU/mL (0.32-4.0)
== END 2023-08-22 09:35 | disposition home or self-care (01) ==
LOC: HO.LAB 09:34
PROVIDERS: PCP Internal Medicine; Visit Provider Internal Medicine
DX: E78.5 Hyperlipidemia, unspecified (principal); E03.9 Hypothyroidism, unspecified
CPT/HCPCS: 36415; 80061; 84443

== ENCOUNTER 2023-09-30 11:29 | Outpatient (AMB) | payer MEDICARE, BC, SELFPAY ==
[2023-09-30 11:33] VITALS: BP 124/84; PULSE 65; O2SAT 98; BMI 38.9
--- NOTE | 2023-09-30 11:33 | A.OFFPC_ITS ---
Vital Signs 09/30/23 11:33 Height 5 ft 1 in Weight 206 lb BMI 38.9 BP 124/84 Blood Pressure Location Rt brachial Position Sitting Pulse 65 Pulse Source Pulse Oximeter Pulse Oximetry (%) 98 Oxygen Delivery Method Room Air Intake Visit Reasons: 3 month f/u Clinical Leader Required: No Waffle Machine Operator: Not Required per policy Accompanied by: Self / Same As Patient Allergies oxybutynin Allergy (Intermediate, Verified 09/30/23 11:33) Unknown AZALEA Inhibitors Allergy (Unknown, Verified 09/30/23 11:33) Unknown acetaminophen [From Vicodin] Allergy (Unknown, Verified 09/30/23 11:33) Unknown almond Allergy (Unknown, Verified 09/30/23 11:33) Unknown amoxicillin Allergy (Unknown, Verified 09/30/23 11:33) GI upset azithromycin Allergy (Unknown, Verified 09/30/23 11:33) Unknown colesevelam [WelChol] Allergy (Unknown, Verified 09/30/23 11:33) Unknown hydrocodone [From Vicodin] Allergy (Unknown, Verified 09/30/23 11:33) Unknown lactose Allergy (Unknown, Verified 09/30/23 11:33) Unknown Medication List - Last Reconciled 09/30/23 by Jesus Moreno MD cholecalciferol (vitamin D3) 25 mcg PO DAILY erythromycin 250 mg PO QID esomeprazole magnesium (Nexium 24HR) 20 mg PO DAILY hydrochlorothiazide 12.5 mg PO DAILY hydrocodone-acetaminophen 7.5-300 mg 1 tab PO Q8H PRN metoprolol tartrate 50 mg PO BID wlyucxsi-xbwaepf-qivh-lutein 1 tab PO DAILY oxycodone 5 mg PO Q4H PRN phenazopyridine 200 mg PO TID Synthroid (levothyroxine) 88 mcg PO DAILY 90 days NS vibegron (Gemtesa) 75 mg PO DAILY Tobacco use date assessed: 09/30/23 Fall risk assessment: No Falls in past year Last assessed Fall Risk: 09/30/23 HPI 3 month f/u HPI Details HTN hyperlipidemiaand vit D def; intolerant of statins; stable PFSH Medical History Hypothyroidism Hyperlipidemia Surgical History Cardiac pacemaker History of appendectomy Family History Father Myocardial infarction Mother CHF (congestive heart failure) Social History Housing: Apartment Alcohol intake: never Patient Tobacco Use Status: Never used Tobacco e-Cigarette/Vaping Use: Never Used Second Hand Smoke Exposure: No service: No Current occupational status: retired Cognitive needs: No Hearing needs: No Vision needs: Yes Questionnaire PHQ-9 Over the last 2 weeks, how often have you been bothered by any of the following problems? 1. Little interest or pleasure in doing things: not at all 2. Feeling down, depressed, or hopeless: not at all 3. Trouble falling or staying asleep, or sleeping too much: not at all 4. Feeling tired or having little energy: not at all 5. Poor appetite or overeating: not at all 6. Feeling bad about yourself - or that you are a failure or have let yourself or your family down: not at all 7. Trouble concentrating on things, such as reading the newspaper or watching television: not at all 8. Moving or speaking so slowly that other people could have noticed. Or the opposite - being so fidgety or restless that you have been moving around a lot more than usual: not at all 9. Thoughts that you would be better off or of hurting yourself in some way: not at all Total score: 0 Depression Screening Interpretation: Negative Depression Screening Done: Yes [id number] - PHQ-9 Billing: Yes Source: Developed by Drs. Juan Funes, Kaela Keenan, Omkar Constantino and colleagues, with an educational carroll from [employer]. Thrive Questionnaire Date Thrive assessed: 09/30/23 I am a: Patient What is your living situation today?: I have a steady place to live Within the past 12 months, did the food you bought not last and you didn't have the money to get more?: Never true Within the past 12 months, did you worry whether your food would run out before you got money to buy more?: Never true Do you have trouble paying for medicines?: No Do you have trouble getting transportation to medical appointments?: No Do you have trouble paying your heating and electricity bill?: No Do you have trouble taking care of your child, family member or friend?: No Do you have trouble with day-to-day activities such as bathing, preparing meals, shopping, managing finances, etc.?: No Are you currently unemployed and looking for a job?: No Are you interested in more education?: No Please select the resources that you would like help with: None THRIVE Score: 0 AUDIT C Alcohol Use Questionnaire (AUDIT-C) 1. How often do you have a drink containing alcohol?: Monthly or less 2. How many drinks containing alcohol do you have on a typical day when you are drinking?: 1 or 2 3. How often do you have six or more drinks on one occasion?: Never Total Score: 1 Score Reviewed/Action Taken: Yes ROSELYN-7 AMB Questionnaire ROSELYN-7 Date ROSELYN - 7 assessed: 09/30/23 Feeling nervous, anxious, or on edge: 0 = Not at all Not being able to stop or control worryin = Not at all Worrying too much about different things: 0 = Not at all Trouble relaxin = Not at all Being so restless that it is hard to sit still: 0 = Not at all Becoming easily annoyed or irritable: 0 = Not at all Feeling afraid as if something awful might happen: 0 = Not at all Total ROSELYN-7 score (0-4 normal; 5-9 mild; 10-14 moderate; 15-21 severe): 0 Source: Developed by Drs. Juan Funes, Kaela Keenan, Omkar Constantino and colleagues, with an educational carroll from [employer]. ROSELYN-7 Assessment Billing ROSELYN-7 Assessment Tool: ROSELYN-7 Assessment [id number] Review of Systems Const Denies chills, Denies headache(s) and Denies weight loss ENT Denies headache(s) Card Denies chest pain, Denies syncope, Denies irregular heart rhythm and Denies dyspnea Resp Denies chest congestion, Denies cough and Denies dyspnea GI Denies abdominal pain, Denies change in stool character, Denies nausea and Denies vomiting Musc Denies deformity and Denies joint swelling Neuro Denies syncope and Denies headache(s) Physical exam (Primary Care) Vital Signs: Last Vital Signs Pulse 65 03/20/24 11:33 BP 124/84 09/30/23 11:33 Pulse Ox 98 09/30/23 11:33 Oxygen Delivery Method Room Air 09/30/23 11:33 BMI result Body Mass Index 38.9 Tobacco/Smoking Status: Tobacco use Status Tobacco use date assessed 09/30/23 09/30/23 11:40 Patient Tobacco Use Status Never used Tobacco 09/30/23 11:40 e-Cigarette/Vaping Use Never Used 09/30/23 11:40 PHQ-9: PHQ-9 Score PHQ-9: Total score 0 09/30/23 11:40 Depression Screening Interpretation: Negative Thrive Assessment: Date of Thrive Assessment Date Thrive assessed 09/30/23 09/30/23 11:40 Const General: cooperative, comfortable, no acute distress and alert Neck Neck: Yes no lymphadenopathy Thyroid: Thyroid normal Resp Effort & Inspection: normal respiratory effort Auscultation: clear to auscultation bilaterally Percussion: percussion normal Cardio Jugular venous distension: no JVD Palpation: normal PMI Rate: regular rate Rhythm: regular rhythm Heart sounds: S1 normal heart sound present and S2 normal heart sound present GI Inspection: Yes normal to inspection Palpation (GI): No hepatosplenomegaly present Skin General skin exam: no rashes or lesions noted Extrem General: Yes no clubbing, cyanosis or edema Assessment and Plan Assessment & Plan (1) Hypertension: Code(s): I10 - Essential (primary) hypertension Qualifiers: Hypertension type: primary hypertension Qualified Code(s): I10 - Essential (primary) hypertension Plan: stable; same rx (2) Hypothyroidism: Code(s): E03.9 - Hypothyroidism, unspecified Qualifiers: Hypothyroidism type: acquired Qualified Code(s): E03.9 - Hypothyroidism, unspecified Plan: stable; same rx (3) Hyperlipidemia: Code(s): E78.5 - Hyperlipidemia, unspecified Plan: stable; same rx Orders: Orders Lipid Panel Today E78.5 - Hyperlipidemia, unspecified Thyroid Stimulating Hormone Today E03.9 - Hypothyroidism, unspecified Coding Level of Care Code Tele Est Pt Level 4 (81866) Diagnoses Primary hypertension I10 Hypertension type: primary hypertension Acquired hypothyroidism E03.9 Hypothyroidism type: acquired Hyperlipidemia E78.5 Additional Codes ROSELYN-7 Assessment Billing - ROSELYN-7 Assessment Tool: ROSELYN-7 Assessment [id number] ([id number])
== END 2023-09-30 11:48 | disposition home or self-care (01) ==
PROVIDERS: PCP Internal Medicine; Visit Provider Internal Medicine
DX: I10 Essential (primary) hypertension (principal); E03.9 Hypothyroidism, unspecified; E78.5 Hyperlipidemia, unspecified
CPT/HCPCS: 99214

== ENCOUNTER 2024-01-09 07:50 | Outpatient (REF) | payer MEDICARE, BC, SELFPAY ==
[2024-01-09 10:00] LABS: Cholesterol 277 mg/dL (<200); HDL Cholesterol 57 mg/dL (>40); LDL Cholesterol Calculated 196 mg/dL (<100); Thyroid Stimulating Hormone 1.28 uIU/mL (0.32-4.0); Triglycerides 124 mg/dL (<150)
== END 2024-01-09 07:51 | disposition home or self-care (01) ==
LOC: HO.LAB 07:50
PROVIDERS: PCP Internal Medicine; Visit Provider Internal Medicine
DX: E78.5 Hyperlipidemia, unspecified (principal); E03.9 Hypothyroidism, unspecified
CPT/HCPCS: 36415; 80061; 84443

== ENCOUNTER 2024-01-13 08:32 | Outpatient (AMB) | payer MEDICARE, BC, SELFPAY ==
[2024-01-13 08:35] VITALS: BP 124/70; PULSE 65; O2SAT 98; BMI 39.7
--- NOTE | 2024-01-13 08:35 | A.OFFPC_ITS ---
Vital Signs 01/13/24 08:35 Height 5 ft 1 in Weight 210 lb BMI 39.7 BP 124/70 Blood Pressure Location Lt brachial Position Sitting Pulse 65 Pulse Source Pulse Oximeter Pulse Oximetry (%) 98 Oxygen Delivery Method Room Air Intake Visit Reasons: 3mth f/u Teaching Specialists: Not Required per policy Accompanied by: Self / Same As Patient Allergies oxybutynin Allergy (Intermediate, Verified 01/13/24 08:35) Unknown AZALEA Inhibitors Allergy (Unknown, Verified 01/13/24 08:35) Unknown acetaminophen [From Vicodin] Allergy (Unknown, Verified 01/13/24 08:35) Unknown almond Allergy (Unknown, Verified 01/13/24 08:35) Unknown amoxicillin Allergy (Unknown, Verified 01/13/24 08:35) GI upset azithromycin Allergy (Unknown, Verified 01/13/24 08:35) Unknown colesevelam [WelChol] Allergy (Unknown, Verified 01/13/24 08:35) Unknown hydrocodone [From Vicodin] Allergy (Unknown, Verified 01/13/24 08:35) Unknown lactose Allergy (Unknown, Verified 01/13/24 08:35) Unknown Medication List - Last Reconciled 01/13/24 by Jesus Moreno MD cholecalciferol (vitamin D3) 25 mcg PO DAILY erythromycin 250 mg PO QID esomeprazole magnesium (Nexium 24HR) 20 mg PO DAILY hydrochlorothiazide 12.5 mg PO DAILY hydrocodone-acetaminophen 7.5-300 mg 1 tab PO Q8H PRN metoprolol tartrate 50 mg PO BID [id number]-jrbkvdx-xjfw-lutein 1 tab PO DAILY oxycodone 5 mg PO Q4H PRN phenazopyridine 200 mg PO TID Synthroid (levothyroxine) 88 mcg PO DAILY 90 days NS vibegron (Gemtesa) 75 mg PO DAILY Tobacco use date assessed: 09/30/23 Fall risk assessment: No Falls in past year Last assessed Fall Risk: 01/13/24 Dental Screening Dental Screen Date: 01/13/24 Did you have a dental visit in the last 12 months?: Yes Did you have a dental problem in the last 6 months where you did not have access to dental care?: No Was dental information given to patient?: Patient has dentist HPI 3mth f/u HPI Details HTN on rx; doing well; bp controlled PFSH Medical History Hypothyroidism Hyperlipidemia Surgical History Cardiac pacemaker History of appendectomy Family History Father Myocardial infarction Mother CHF (congestive heart failure) Social History Housing: Apartment Alcohol intake: never Patient Tobacco Use Status: Never used Tobacco e-Cigarette/Vaping Use: Never Used Second Hand Smoke Exposure: No service: No Current occupational status: retired Cognitive needs: No Hearing needs: No Vision needs: Yes (glasses) Questionnaire Thrive Questionnaire Date Thrive assessed: 09/30/23 ROSELYN-7 AMB Questionnaire ROSELYN-7 Date ROSELYN - 7 assessed: 09/30/23 Source: Developed by Drs. Juan Funes, Kaela Keenan, Omkar Constantino and colleagues, with an educational carroll from [employer]. Review of Systems Const Denies chills, Denies headache(s) and Denies weight loss ENT Denies headache(s) Card Denies chest pain, Denies syncope, Denies irregular heart rhythm and Denies dyspnea Resp Denies chest congestion, Denies cough and Denies dyspnea GI Denies abdominal pain, Denies change in stool character, Denies nausea and Denies vomiting Musc Denies deformity and Denies joint swelling Neuro Denies syncope and Denies headache(s) Physical exam (Primary Care) Vital Signs: Last Vital Signs Pulse 65 01/13/24 08:35 BP 124/70 01/13/24 08:35 Pulse Ox 98 01/13/24 08:35 Oxygen Delivery Method Room Air 01/13/24 08:35 BMI result Body Mass Index 39.7 Tobacco/Smoking Status: Tobacco use Status Tobacco use date assessed 09/30/23 01/13/24 08:40 Patient Tobacco Use Status Never used Tobacco 01/13/24 08:40 e-Cigarette/Vaping Use Never Used 01/13/24 08:40 Thrive Assessment: Date of Thrive Assessment Date Thrive assessed 09/30/23 01/13/24 08:40 Const General: cooperative, comfortable, no acute distress and alert Neck Neck: Yes no lymphadenopathy Thyroid: Thyroid normal Resp Effort & Inspection: normal respiratory effort Auscultation: clear to auscultation bilaterally Percussion: percussion normal Cardio Jugular venous distension: no JVD Palpation: normal PMI Rate: regular rate Rhythm: regular rhythm Heart sounds: S1 normal heart sound present and S2 normal heart sound present GI Inspection: Yes normal to inspection Palpation (GI): No hepatosplenomegaly present Skin General skin exam: no rashes or lesions noted Extrem General: Yes no clubbing, cyanosis or edema Assessment and Plan Assessment & Plan (1) Hypertension: Code(s): I10 - Essential (primary) hypertension Qualifiers: Hypertension type: primary hypertension Qualified Code(s): I10 - Essential (primary) hypertension Plan: stable; same rx Orders: Orders Lipid Panel Today E78.5 - Hyperlipidemia, unspecified, Z13.220 - Encounter for screening for lipoid disorders Thyroid Stimulating Hormone Today E78.5 - Hyperlipidemia, unspecified, Z13.29 - Encounter for screening for other suspected endocrine disorder Medications: Refilled hydrochlorothiazide 12.5 mg PO DAILY 90 tabs 3RF E78.5 - Hyperlipidemia, unspecified Coding Level of Care Code Est Pt Level 3 (93587) Diagnoses Primary hypertension I10 Hypertension type: primary hypertension
== END 2024-01-13 08:47 | disposition home or self-care (01) ==
PROVIDERS: PCP Internal Medicine; Visit Provider Internal Medicine
DX: I10 Essential (primary) hypertension (principal)
CPT/HCPCS: 99213

== ENCOUNTER 2024-04-16 08:28 | Outpatient (REF) | payer MEDICARE, BC, SELFPAY ==
[2024-04-16 10:00] LABS: Cholesterol 290 mg/dL (<200); HDL Cholesterol 60 mg/dL (>40); LDL Cholesterol Calculated 206 mg/dL (<100); Triglycerides 124 mg/dL (<150)
[2024-04-16 10:17] LABS: Thyroid Stimulating Hormone 0.87 uIU/mL (0.32-4.0)
== END 2024-04-16 08:29 | disposition home or self-care (01) ==
LOC: HO.LAB 08:28
PROVIDERS: PCP Internal Medicine; Visit Provider Internal Medicine
DX: Z13.220 Encounter for screening for lipoid disorders (principal); E78.5 Hyperlipidemia, unspecified; Z13.29 Encounter for screening for other suspected endocrine disorder
CPT/HCPCS: 36415; 80061; 84443

== ENCOUNTER 2024-04-22 11:11 | Outpatient (AMB) | payer MEDICARE, BC, SELFPAY ==
[2024-04-22 11:18] VITALS: BP 124/72; PULSE 64; O2SAT 93; BMI 39.7
--- NOTE | 2024-04-22 11:18 | A.OFFPC_ITS ---
Vital Signs 04/22/24 11:18 Height 5 ft 1 in Weight 210 lb BMI 39.7 BP 124/72 Blood Pressure Location Rt brachial Position Sitting Pulse 64 Pulse Source Pulse Oximeter Pulse Oximetry (%) 93 Oxygen Delivery Method Room Air Intake Visit Reasons: 3mth f/u - rescheduled Grubber Required: No Accompanied by: Self / Same As Patient Allergies oxybutynin Allergy (Intermediate, Verified 04/22/24 11:20) Unknown AZALEA Inhibitors Allergy (Unknown, Verified 04/22/24 11:20) Unknown acetaminophen [From Vicodin] Allergy (Unknown, Verified 04/22/24 11:20) Unknown almond Allergy (Unknown, Verified 04/22/24 11:20) Unknown amoxicillin Allergy (Unknown, Verified 04/22/24 11:20) GI upset azithromycin Allergy (Unknown, Verified 04/22/24 11:20) Unknown colesevelam [WelChol] Allergy (Unknown, Verified 04/22/24 11:20) Unknown hydrocodone [From Vicodin] Allergy (Unknown, Verified 04/22/24 11:20) Unknown lactose Allergy (Unknown, Verified 04/22/24 11:20) Unknown Medication List - Last Reconciled 04/22/24 by Jesus Moreno MD cholecalciferol (vitamin D3) 25 mcg PO DAILY erythromycin 250 mg PO QID esomeprazole magnesium (Nexium 24HR) 20 mg PO DAILY hydrochlorothiazide 12.5 mg PO DAILY hydrocodone-acetaminophen 7.5-300 mg 1 tab PO Q8H PRN metoprolol tartrate 50 mg PO BID miqdbhpa-aiydwdk-rqvo-lutein 1 tab PO DAILY phenazopyridine 200 mg PO TID Synthroid (levothyroxine) 88 mcg PO DAILY 90 days NS vibegron (Gemtesa) 75 mg PO DAILY Tobacco use date assessed: 09/30/23 Fall risk assessment: No Falls in past year Last assessed Fall Risk: 04/22/24 Dental Screening Dental Screen Date: 01/13/24 HPI 3mth f/u - rescheduled HPI Details hyperlipidemia; intolerant of statins PFSH Medical History Hypothyroidism Hyperlipidemia Surgical History Cardiac pacemaker History of appendectomy Family History Father Myocardial infarction Mother CHF (congestive heart failure) Social History Housing: Apartment Alcohol intake: never Patient Tobacco Use Status: Never used Tobacco Tobacco use type: Cigarette e-Cigarette/Vaping Use: Never Used Second Hand Smoke Exposure: No service: No Current occupational status: retired Cognitive needs: No Hearing needs: No Vision needs: Yes (glasses) Questionnaire Thrive Questionnaire Date Thrive assessed: 09/30/23 Are you currently unemployed and looking for a job?: No ROSELYN-7 AMB Questionnaire ROSELYN-7 Date ROSELYN - 7 assessed: 09/30/23 Source: Developed by Drs. Juan Funes, Kaela Keenan, Omkar Constantino and colleagues, with an educational carroll from [employer]. Review of Systems Const Denies chills, Denies headache(s) and Denies weight loss ENT Denies headache(s) Card Denies chest pain, Denies syncope, Denies irregular heart rhythm and Denies dyspnea Resp Denies chest congestion, Denies cough and Denies dyspnea GI Denies abdominal pain, Denies change in stool character, Denies nausea and Denies vomiting Musc Denies deformity and Denies joint swelling Neuro Denies syncope and Denies headache(s) Physical exam (Primary Care) Vital Signs: Last Vital Signs Pulse 64 04/22/24 11:18 BP 124/72 04/22/24 11:18 Pulse Ox 93 04/22/24 11:18 Oxygen Delivery Method Room Air 04/22/24 11:18 BMI result Body Mass Index 39.7 Tobacco/Smoking Status: Tobacco use Status Tobacco use date assessed 09/30/23 04/22/24 11:23 Patient Tobacco Use Status Never used Tobacco 04/22/24 11:23 Tobacco use type Cigarette 04/22/24 11:23 e-Cigarette/Vaping Use Never Used 04/22/24 11:23 Thrive Assessment: Date of Thrive Assessment Date Thrive assessed 09/30/23 04/22/24 11:23 Const General: cooperative, comfortable, no acute distress and alert Neck Neck: Yes no lymphadenopathy Thyroid: Thyroid normal Resp Effort & Inspection: normal respiratory effort Auscultation: clear to auscultation bilaterally Percussion: percussion normal Cardio Jugular venous distension: no JVD Palpation: normal PMI Rate: regular rate Rhythm: regular rhythm Heart sounds: S1 normal heart sound present and S2 normal heart sound present GI Inspection: Yes normal to inspection Palpation (GI): No hepatosplenomegaly present Skin General skin exam: no rashes or lesions noted Extrem General: Yes no clubbing, cyanosis or edema Coding Level of Care Code Est Pt Level 3 (62686) Diagnoses Hyperlipidemia E78.5 Assessment & Plan Assessment & Plan (1) Hyperlipidemia: Code(s): E78.5 - Hyperlipidemia, unspecified Category: Medical Plan: stable; do labs Orders: Orders Lipid Panel Today Z13.220 - Encounter for screening for lipoid disorders Thyroid Stimulating Hormone Today Z13.29 - Encounter for screening for other suspected endocrine disorder
== END 2024-04-22 11:29 | disposition home or self-care (01) ==
PROVIDERS: PCP Internal Medicine; Visit Provider Internal Medicine
DX: E78.5 Hyperlipidemia, unspecified (principal)

== ENCOUNTER → 2024-04-22 11:11 | Outpatient (BNVA) | payer MEDICARE, BC, SELFPAY | PROVIDERS: PCP Internal Medicine; Visit Provider Internal Medicine | DX: E78.5 Hyperlipidemia, unspecified (principal) | CPT/HCPCS: 99212 ==

== ENCOUNTER 2024-05-24 14:20 | Outpatient (AMB) | payer MEDICARE, BC, SELFPAY ==
[2024-05-24 14:31] VITALS: BP 132/68; PULSE 71; O2SAT 97; BMI 39.5
--- NOTE | 2024-05-24 14:31 | MHC.PC.OV ---
Vital Signs 05/24/24 14:31 Height 5 ft 1 in Weight 209 lb BMI 39.5 BP 132/68 Blood Pressure Location Lt brachial Position Sitting Pulse 71 Pulse Source Pulse Oximeter Pulse Oximetry (%) 97 Oxygen Delivery Method Room Air Intake Visit Reasons: [facility] 05/20 Dizziness/vomiting/diarrhea Director Of Knowledge Management Required: No Accompanied by: Self / Same As Patient Allergies oxybutynin Allergy (Intermediate, Verified 05/24/24 14:37) Unknown AZALEA Inhibitors Allergy (Unknown, Verified 05/24/24 14:37) Unknown acetaminophen [From Vicodin] Allergy (Unknown, Verified 05/24/24 14:37) Unknown almond Allergy (Unknown, Verified 05/24/24 14:37) Unknown amoxicillin Allergy (Unknown, Verified 05/24/24 14:37) GI upset azithromycin Allergy (Unknown, Verified 05/24/24 14:37) Unknown colesevelam [WelChol] Allergy (Unknown, Verified 05/24/24 14:37) Unknown hydrocodone [From Vicodin] Allergy (Unknown, Verified 05/24/24 14:37) Unknown lactose Allergy (Unknown, Verified 05/24/24 14:37) Unknown Medication List - Last Reconciled 05/25/24 by Jesus Moreno MD cholecalciferol (vitamin D3) 25 mcg PO DAILY erythromycin 250 mg PO QID esomeprazole magnesium (Nexium 24HR) 20 mg PO DAILY hydrochlorothiazide 12.5 mg PO DAILY hydrocodone-acetaminophen 7.5-300 mg 1 tab PO Q8H PRN meclizine 12.5 mg PO TID PRN metoprolol tartrate 50 mg PO BID zwuifpvp-bqlvfyx-rifr-lutein 1 tab PO DAILY phenazopyridine 200 mg PO TID Synthroid (levothyroxine) 88 mcg PO DAILY 90 days NS vibegron (Gemtesa) 75 mg PO DAILY Tobacco use date assessed: 09/30/23 Fall risk assessment: No Falls in past year Last assessed Fall Risk: 05/24/24 Dental Screening Dental Screen Date: 01/13/24 HPI [facility] 05/20 Dizziness/vomiting/diarrhea HPI Details admitted with 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; improving; will be getting vestibular rehab [facility] Medical History Hypothyroidism Hyperlipidemia Surgical History Cardiac pacemaker History of appendectomy Family History Father Myocardial infarction Mother CHF (congestive heart failure) Social History Housing: Apartment Alcohol intake: never Patient Tobacco Use Status: Never used Tobacco Tobacco use type: Cigarette e-Cigarette/Vaping Use: Never Used Second Hand Smoke Exposure: No service: No Current occupational status: retired Cognitive needs: No Hearing needs: No Vision needs: Yes (glasses) Questionnaire Thrive Questionnaire Date Thrive assessed: 09/30/23 Are you currently unemployed and looking for a job?: No ROSELYN-7 AMB Questionnaire ROSELYN-7 Date ROSELYN - 7 assessed: 09/30/23 Source: Developed by Drs. Juan Funes, Kaela Keenan, Omkar Constantino and colleagues, with an educational carroll from [employer]. Review of Systems Const Denies chills, Denies headache(s) and Denies weight loss ENT Denies headache(s) Card Denies chest pain, Denies syncope, Denies irregular heart rhythm and Denies dyspnea Resp Denies chest congestion, Denies cough and Denies dyspnea GI Denies abdominal pain, Denies change in stool character, Denies nausea and Denies vomiting Musc Denies deformity and Denies joint swelling Neuro Denies syncope and Denies headache(s) Physical exam (Primary Care) Vital Signs: Last Vital Signs Pulse 71 05/24/24 14:31 BP 132/68 05/24/24 14:31 Pulse Ox 97 05/24/24 14:31 Oxygen Delivery Method Room Air 05/24/24 14:31 BMI result Body Mass Index 39.5 Tobacco/Smoking Status: Tobacco use Status Tobacco use date assessed 09/30/23 05/24/24 14:40 Patient Tobacco Use Status Never used Tobacco 05/24/24 14:40 Tobacco use type Cigarette 05/24/24 14:40 e-Cigarette/Vaping Use Never Used 05/24/24 14:40 Thrive Assessment: Date of Thrive Assessment Date Thrive assessed 09/30/23 05/24/24 14:40 Const General: cooperative, comfortable, no acute distress and alert Neck Neck: Yes no lymphadenopathy Thyroid: Thyroid normal Resp Effort & Inspection: normal respiratory effort Auscultation: clear to auscultation bilaterally Percussion: percussion normal Cardio Jugular venous distension: no JVD Palpation: normal PMI Rate: regular rate Rhythm: regular rhythm Heart sounds: S1 normal heart sound present and S2 normal heart sound present GI Inspection: Yes normal to inspection Palpation (GI): No hepatosplenomegaly present Skin General skin exam: no rashes or lesions noted Extrem General: Yes no clubbing, cyanosis or edema Coding Level of Care Code Est Pt Level 3 (63315) Diagnoses Vertigo R42 Assessment & Plan Assessment & Plan (1) Vertigo: Code(s): R42 - Dizziness and giddiness Plan: per rehab
== END 2024-05-24 14:51 | disposition home or self-care (01) ==
PROVIDERS: PCP Internal Medicine; Visit Provider Internal Medicine
DX: R42 Dizziness and giddiness (principal)

== ENCOUNTER → 2024-05-24 14:20 | Outpatient (BNVA) | payer MEDICARE, BC, SELFPAY | PROVIDERS: PCP Internal Medicine; Visit Provider Internal Medicine | DX: R42 Dizziness and giddiness (principal) | CPT/HCPCS: 99212 ==

== ENCOUNTER 2024-06-07 11:30 | Outpatient (AMB) | payer MEDICARE, BC, SELFPAY ==
[2024-06-07 11:31] VITALS: BP 114/68; PULSE 67; O2SAT 97; BMI 39.5
--- NOTE | 2024-06-07 11:31 | MHC.PC.OV ---
Vital Signs 06/07/24 11:31 Height 5 ft 1 in Weight 209 lb 0.8 oz BMI 39.5 BP 114/68 Blood Pressure Location Lt brachial Position Sitting Pulse 67 Pulse Source Pulse Oximeter Pulse Oximetry (%) 97 Oxygen Delivery Method Room Air Intake Visit Reasons: Earache Intake Note: pt c/o of left ear pain X4 days Allergies oxybutynin Allergy (Intermediate, Verified 06/07/24 11:31) Unknown AZALEA Inhibitors Allergy (Unknown, Verified 06/07/24 11:31) Unknown acetaminophen [From Vicodin] Allergy (Unknown, Verified 06/07/24 11:31) Unknown almond Allergy (Unknown, Verified 06/07/24 11:31) Unknown amoxicillin Allergy (Unknown, Verified 06/07/24 11:31) GI upset azithromycin Allergy (Unknown, Verified 06/07/24 11:31) Unknown colesevelam [WelChol] Allergy (Unknown, Verified 06/07/24 11:31) Unknown hydrocodone [From Vicodin] Allergy (Unknown, Verified 06/07/24 11:31) Unknown lactose Allergy (Unknown, Verified 06/07/24 11:31) Unknown Tobacco use date assessed: 09/30/23 Fall risk assessment: No Falls in past year Last assessed Fall Risk: 06/07/24 Dental Screening Dental Screen Date: 01/13/24 HPI Earache HPI Details left earache for 2 days; hearing ok PFSH Medical History Hypothyroidism Hyperlipidemia Surgical History Cardiac pacemaker History of appendectomy Family History Father Myocardial infarction Mother CHF (congestive heart failure) Social History Housing: Apartment Alcohol intake: never Patient Tobacco Use Status: Never used Tobacco Tobacco use type: Cigarette e-Cigarette/Vaping Use: Never Used Second Hand Smoke Exposure: No service: No Current occupational status: retired Cognitive needs: No Hearing needs: No Vision needs: Yes (glasses) Questionnaire Thrive Questionnaire Date Thrive assessed: 09/30/23 Are you currently unemployed and looking for a job?: No AUDIT C Alcohol Use Questionnaire (AUDIT-C) 1. How often do you have a drink containing alcohol?: Monthly or less 2. How many drinks containing alcohol do you have on a typical day when you are drinking?: 1 or 2 3. How often do you have six or more drinks on one occasion?: Never Total Score: 1 Score Reviewed/Action Taken: Yes ROSELYN-7 AMB Questionnaire ROSELYN-7 Date ROSELYN - 7 assessed: 09/30/23 Source: Developed by Drs. Juan Funes, Kaela Keenan, Omkar Constantino and colleagues, with an educational carroll from [employer]. Review of Systems Const Denies chills, Denies headache(s) and Denies weight loss ENT Denies headache(s) Card Denies chest pain, Denies syncope, Denies irregular heart rhythm and Denies dyspnea Resp Denies chest congestion, Denies cough and Denies dyspnea GI Denies abdominal pain, Denies change in stool character, Denies nausea and Denies vomiting Musc Denies deformity and Denies joint swelling Neuro Denies syncope and Denies headache(s) Physical exam (Primary Care) Vital Signs: Last Vital Signs Pulse 67 06/07/24 11:31 BP 114/68 06/07/24 11:31 Pulse Ox 97 06/07/24 11:31 Oxygen Delivery Method Room Air 06/07/24 11:31 BMI result Body Mass Index 39.5 Tobacco/Smoking Status: Tobacco use Status Tobacco use date assessed 09/30/23 06/07/24 11:37 Patient Tobacco Use Status Never used Tobacco 06/07/24 11:37 Tobacco use type Cigarette 06/07/24 11:37 e-Cigarette/Vaping Use Never Used 06/07/24 11:37 Thrive Assessment: Date of Thrive Assessment Date Thrive assessed 09/30/23 06/07/24 11:37 Const General: cooperative, comfortable, no acute distress and alert HENMT Other: left OM Neck Neck: Yes no lymphadenopathy Thyroid: Thyroid normal Resp Effort & Inspection: normal respiratory effort Auscultation: clear to auscultation bilaterally Percussion: percussion normal Cardio Jugular venous distension: no JVD Palpation: normal PMI Rate: regular rate Rhythm: regular rhythm Heart sounds: S1 normal heart sound present and S2 normal heart sound present GI Inspection: Yes normal to inspection Palpation (GI): No hepatosplenomegaly present Skin General skin exam: no rashes or lesions noted Extrem General: Yes no clubbing, cyanosis or edema Coding Level of Care Code Est Pt Level 3 (40303) Diagnoses Otitis media H66.90 Assessment & Plan Assessment & Plan (1) Otitis media: Code(s): H66.90 - Otitis media, unspecified, unspecified ear Plan: rx sent Medications: New cyclobenzaprine 10 mg PO TID 20 days PRN 30 tabs 2RF muscle spasm sulfamethoxazole-trimethoprim 800-160 mg (Bactrim DS) 1 tab PO BID 10 tabs 0RF
== END 2024-06-07 12:42 | disposition home or self-care (01) ==
PROVIDERS: PCP Internal Medicine; Visit Provider Internal Medicine
DX: H66.90 Otitis media, unspecified, unspecified ear (principal)

== ENCOUNTER → 2024-06-07 11:30 | Outpatient (BNVA) | payer MEDICARE, BC, SELFPAY | PROVIDERS: PCP Internal Medicine; Visit Provider Internal Medicine | DX: H66.90 Otitis media, unspecified, unspecified ear (principal) | CPT/HCPCS: 99212 ==

== ENCOUNTER 2024-07-30 08:47 | Outpatient (REF) | payer MEDICARE, BC, SELFPAY ==
[2024-07-30 10:35] LABS: Cholesterol 281 mg/dL (<200); HDL Cholesterol 60 mg/dL (>40); LDL Cholesterol Calculated 189 mg/dL (<100); Triglycerides 161 mg/dL (<150)
[2024-07-30 10:53] LABS: Thyroid Stimulating Hormone 0.19 uIU/mL (0.32-4.0)
== END 2024-07-30 08:48 | disposition home or self-care (01) ==
LOC: HO.LAB 08:47
PROVIDERS: PCP Internal Medicine; Visit Provider Internal Medicine
DX: Z13.220 Encounter for screening for lipoid disorders (principal); Z13.29 Encounter for screening for other suspected endocrine disorder
CPT/HCPCS: 36415; 80061; 84443

== ENCOUNTER 2024-08-02 11:39 | Outpatient (AMB) | payer MEDICARE, BC, SELFPAY ==
--- NOTE | 2024-08-02 11:46 | A.OFFPC_ITS ---
Vital Signs 08/02/24 11:47 Height 5 ft 1 in Weight 212 lb BMI 40.1 BP 118/70 Blood Pressure Location Rt brachial Position Sitting Pulse 70 Pulse Source Pulse Oximeter Temp 97.1 F Temp Source Skin Pulse Oximetry (%) 96 Oxygen Delivery Method Room Air Intake Visit Reasons: 3 month f/u Intake Note: Patient is here to follow up on HTN, HLD, Hypothyriodism. 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 Allergies oxybutynin Allergy (Intermediate, Verified 08/02/24 11:47) Unknown AZALEA Inhibitors Allergy (Unknown, Verified 08/02/24 11:47) Unknown acetaminophen [From Vicodin] Allergy (Unknown, Verified 08/02/24 11:47) Unknown almond Allergy (Unknown, Verified 08/02/24 11:47) Unknown amoxicillin Allergy (Unknown, Verified 08/02/24 11:47) GI upset azithromycin Allergy (Unknown, Verified 08/02/24 11:47) Unknown colesevelam [WelChol] Allergy (Unknown, Verified 08/02/24 11:47) Unknown hydrocodone [From Vicodin] Allergy (Unknown, Verified 08/02/24 11:47) Unknown lactose Allergy (Unknown, Verified 08/02/24 11:47) Unknown Medication List - Last Reconciled 08/02/24 by Jesus Moreno MD cholecalciferol (vitamin D3) 25 mcg PO DAILY cyclobenzaprine 10 mg PO TID PRN 20 days esomeprazole magnesium (Nexium 24HR) 20 mg PO DAILY hydrochlorothiazide 12.5 mg PO DAILY hydrocodone-acetaminophen 7.5-300 mg 1 tab PO Q8H PRN meclizine 12.5 mg PO TID PRN metoprolol tartrate 50 mg PO BID gslxhwky-rqqkmjn-hhmm-lutein 1 tab PO DAILY phenazopyridine 200 mg PO TID Synthroid (levothyroxine) 88 mcg PO DAILY 90 days NS vibegron (Gemtesa) 75 mg PO DAILY Tobacco use date assessed: 08/02/24 Fall risk assessment: No Falls in past year Last assessed Fall Risk: 08/02/24 Dental Screening Dental Screen Date: 08/02/24 Did you have a dental visit in the last 12 months?: Yes Did you have a dental problem in the last 6 months where you did not have access to dental care?: No Was dental information given to patient?: Patient has dentist HPI 3 month f/u HPI Details hyperlipidemia intolerant of statins; compliant COUNT INCLUDES THE [facility] Medical History Hypothyroidism Hyperlipidemia Surgical History Cardiac pacemaker History of appendectomy Family History Father Myocardial infarction Mother CHF (congestive heart failure) Social History Housing: Apartment Alcohol intake: never Patient Tobacco Use Status: Never used Tobacco Tobacco use type: Cigarette e-Cigarette/Vaping Use: Never Used Second Hand Smoke Exposure: No service: No Current occupational status: retired Cognitive needs: No Hearing needs: No Vision needs: Yes (glasses) Questionnaire PHQ-9 Over the last 2 weeks, how often have you been bothered by any of the following problems? 1. Little interest or pleasure in doing things: not at all 2. Feeling down, depressed, or hopeless: not at all 3. Trouble falling or staying asleep, or sleeping too much: not at all 4. Feeling tired or having little energy: not at all 5. Poor appetite or overeating: not at all 6. Feeling bad about yourself - or that you are a failure or have let yourself or your family down: not at all 7. Trouble concentrating on things, such as reading the newspaper or watching television: not at all 8. Moving or speaking so slowly that other people could have noticed. Or the opposite - being so fidgety or restless that you have been moving around a lot more than usual: not at all 9. Thoughts that you would be better off or of hurting yourself in some way: not at all Total score: 0 Depression Screening Interpretation: Negative Depression Screening Done: Yes Source: Developed by Drs. Juan Funes, Kaela Keenan, Omkar Constantino and colleagues, with an educational carroll from [employer]. Thrive Questionnaire Date Thrive assessed: 08/02/24 I am a: Patient What is your living situation today?: I have a steady place to live Within the past 12 months, did the food you bought not last and you didn't have the money to get more?: Never true Within the past 12 months, did you worry whether your food would run out before you got money to buy more?: Never true Do you have trouble paying for medicines?: No Do you have trouble getting transportation to medical appointments?: No Do you have trouble paying your heating and electricity bill?: No Do you have trouble taking care of your child, family member or friend?: No Do you have trouble with day-to-day activities such as bathing, preparing meals, shopping, managing finances, etc.?: No Are you currently unemployed and looking for a job?: No Are you interested in more education?: No Please select the resources that you would like help with: None THRIVE Score: 0 AUDIT C Alcohol Use Questionnaire (AUDIT-C) 1. How often do you have a drink containing alcohol?: Monthly or less 2. How many drinks containing alcohol do you have on a typical day when you are drinking?: 1 or 2 Total Score: 1 ROSELYN-7 AMB Questionnaire ROSELYN-7 Date ROSELYN - 7 assessed: 08/02/24 Feeling nervous, anxious, or on edge: 0 = Not at all Not being able to stop or control worryin = Not at all Worrying too much about different things: 0 = Not at all Trouble relaxin = Not at all Being so restless that it is hard to sit still: 0 = Not at all Becoming easily annoyed or irritable: 0 = Not at all Feeling afraid as if something awful might happen: 0 = Not at all Total ROSELYN-7 score (0-4 normal; 5-9 mild; 10-14 moderate; 15-21 severe): 0 Source: Developed by Drs. Juan Funes, Kaela Keenan, Omkar Constantino and colleagues, with an educational carroll from [employer]. Review of Systems Const Denies chills, Denies headache(s) and Denies weight loss ENT Denies headache(s) Card Denies chest pain, Denies syncope, Denies irregular heart rhythm and Denies dyspnea Resp Denies chest congestion, Denies cough and Denies dyspnea GI Denies abdominal pain, Denies change in stool character, Denies nausea and Denies vomiting Musc Denies deformity and Denies joint swelling Neuro Denies syncope and Denies headache(s) Physical exam (Primary Care) Vital Signs: Last Vital Signs Temp 97.1 F 08/02/24 11:47 Pulse 70 08/02/24 11:47 BP 118/70 08/02/24 11:47 Pulse Ox 96 08/02/24 11:47 Oxygen Delivery Method Room Air 08/02/24 11:47 BMI result Body Mass Index 40.1 Tobacco/Smoking Status: Tobacco use Status Tobacco use date assessed 08/02/24 08/02/24 11:52 Patient Tobacco Use Status Never used Tobacco 08/02/24 11:52 Tobacco use type Cigarette 08/02/24 11:52 e-Cigarette/Vaping Use Never Used 08/02/24 11:52 PHQ-9: PHQ-9 Score PHQ-9: Total score 0 08/02/24 11:52 Depression Screening Interpretation: Negative Thrive Assessment: Date of Thrive Assessment Date Thrive assessed 08/02/24 08/02/24 11:52 Const General: cooperative, comfortable, no acute distress and alert Neck Neck: Yes no lymphadenopathy Thyroid: Thyroid normal Resp Effort & Inspection: normal respiratory effort Auscultation: clear to auscultation bilaterally Percussion: percussion normal Cardio Jugular venous distension: no JVD Palpation: normal PMI Rate: regular rate Rhythm: regular rhythm Heart sounds: S1 normal heart sound present and S2 normal heart sound present GI Inspection: Yes normal to inspection Palpation (GI): No hepatosplenomegaly present Skin General skin exam: no rashes or lesions noted Extrem General: Yes no clubbing, cyanosis or edema Coding Level of Care Code Est Pt Level 3 (49281) Diagnoses Hyperlipidemia E78.5 Assessment & Plan Assessment & Plan (1) Hyperlipidemia: Code(s): E78.5 - Hyperlipidemia, unspecified Category: Medical Plan: stable; same rx Medications: New meclizine 12.5 mg PO TID PRN 30 tabs 0RF vertigo
[2024-08-02 11:47] VITALS: BP 118/70; PULSE 70; TEMP 36.2; O2SAT 96; BMI 40.1
== END 2024-08-02 12:09 | disposition home or self-care (01) ==
PROVIDERS: PCP Internal Medicine; Visit Provider Internal Medicine
DX: E78.5 Hyperlipidemia, unspecified (principal)

== ENCOUNTER → 2024-08-02 11:39 | Outpatient (BNVA) | payer MEDICARE, BC, SELFPAY | PROVIDERS: PCP Internal Medicine; Visit Provider Internal Medicine | DX: E78.5 Hyperlipidemia, unspecified (principal) | CPT/HCPCS: 99212 ==

== ENCOUNTER 2025-01-07 08:05 | Outpatient (REF) | payer MEDICARE, BC, SELFPAY ==
[2025-01-07 10:16] LABS: TSH reflex Free T4 1.48 uIU/mL (0.32-4.0)
== END 2025-01-07 08:06 | disposition home or self-care (01) ==
LOC: HO.LAB 08:05
PROVIDERS: PCP Internal Medicine; Visit Provider Physician Assistant
DX: E03.9 Hypothyroidism, unspecified (principal)
CPT/HCPCS: 36415; 84443

== ENCOUNTER 2025-01-12 13:00 | Outpatient (AMB) | payer MEDICARE, BC, SELFPAY ==
[2025-01-12 13:03] VITALS: BP 130/72; PULSE 66; O2SAT 94; BMI 41.7
--- NOTE | 2025-01-12 13:03 | A.OFFPC_ITS ---
Vital Signs 01/12/25 13:03 Height 5 ft 1 in Weight 220 lb 8 oz BMI 41.7 BP 130/72 Blood Pressure Location Lt brachial Position Sitting Pulse 66 Pulse Source Pulse Oximeter Pulse Oximetry (%) 94 Oxygen Delivery Method Room Air Intake Visit Reasons: YUVAL Dr Moreno [employer] Research Scientist Required: No Accompanied by: Self / Same As Patient Allergies oxybutynin Allergy (Intermediate, Verified 01/12/25 13:15) Unknown AZALEA Inhibitors Allergy (Unknown, Verified 01/12/25 13:15) Unknown acetaminophen (From Vicodin) Allergy (Unknown, Verified 01/12/25 13:15) Unknown almond Allergy (Unknown, Verified 01/12/25 13:15) Unknown amoxicillin Allergy (Unknown, Verified 01/12/25 13:15) GI upset azithromycin Allergy (Unknown, Verified 01/12/25 13:15) Unknown colesevelam (WelChol) Allergy (Unknown, Verified 01/12/25 13:15) Unknown hydrocodone (From Vicodin) Allergy (Unknown, Verified 01/12/25 13:15) Unknown lactose Allergy (Unknown, Verified 01/12/25 13:15) Unknown Crpjhcn-DFY-AvZ Reductase Inhibitor Adverse Reaction (Intermediate, Verified 01/12/25 13:32) myalgia, arthralgia Medication List - Last Reconciled 01/12/25 by Jeison Tierney MD cholecalciferol (vitamin D3) 25 mcg PO DAILY cyclobenzaprine 10 mg PO TID PRN 20 days esomeprazole magnesium (Nexium 24HR) 20 mg PO DAILY hydrochlorothiazide 12.5 mg PO DAILY hydrocodone-acetaminophen 7.5-300 mg 1 tab PO Q8H PRN meclizine 12.5 mg PO TID PRN metoprolol tartrate 50 mg PO BID zmlbuecw-zinmjdx-kgqp-lutein 1 tab PO DAILY phenazopyridine 200 mg PO TID Synthroid (levothyroxine) 88 mcg PO DAILY 90 days NS vibegron (Gemtesa) 75 mg PO DAILY Tobacco use date assessed: 01/12/25 Fall risk assessment: No Falls in past year Last assessed Fall Risk: 01/12/25 Dental Screening Dental Screen Date: 01/12/25 Did you have a dental visit in the last 12 months?: Yes Did you have a dental problem in the last 6 months where you did not have access to dental care?: No Was dental information given to patient?: Patient has dentist HPI YUVAL Dr Moreno HPI Details Patient comes in today for her follow up visit - is transferring over from Dr. Moreno, who retired from the practice a few months ago States that she currently feels okay and just needs a couple of her Rx refilled She denies any headaches or dizziness Denies any chest pains, no SOB No nausea/vomiting, no abdominal pain No change in bowel habits noted States that she had some labs done to check on her thyroid levels a few days ago [facility] Medical History (Updated 01/12/25 @ 14:25 by Jeison Tierney MD) Vitamin D deficiency Morbid obesity with BMI of 40.0-44.9, adult GERD without esophagitis Overactive bladder Mixed hyperlipidemia Essential hypertension Acquired hypothyroidism Restless leg syndrome Surgical History Cardiac pacemaker History of appendectomy Family History Father Myocardial infarction Mother CHF (congestive heart failure) Social History Housing: Apartment Alcohol intake: never Patient Tobacco Use Status: Never used Tobacco Tobacco use type: Cigarette e-Cigarette/Vaping Use: Never Used Second Hand Smoke Exposure: No service: No Current occupational status: retired Cognitive needs: No Hearing needs: No Vision needs: Yes (glasses) Questionnaire PHQ-9 Over the last 2 weeks, how often have you been bothered by any of the following problems? 1. Little interest or pleasure in doing things: nearly every day 2. Feeling down, depressed, or hopeless: not at all 3. Trouble falling or staying asleep, or sleeping too much: not at all 4. Feeling tired or having little energy: not at all 5. Poor appetite or overeating: not at all 6. Feeling bad about yourself - or that you are a failure or have let yourself or your family down: not at all 7. Trouble concentrating on things, such as reading the newspaper or watching television: not at all 8. Moving or speaking so slowly that other people could have noticed. Or the opposite - being so fidgety or restless that you have been moving around a lot more than usual: not at all 9. Thoughts that you would be better off or of hurting yourself in some way: not at all Total score: 3 Depression Screening Interpretation: Positive Depression Screening Follow-up: Follow-up Visit Requested Depression Screening Done: Yes [id number] - PHQ-9 Billing: Yes Source: Developed by Drs. Juan Funes, Kaela Keenan, Omkar Constantino and colleagues, with an educational carroll from [employer]. Thrive Questionnaire Date Thrive assessed: 01/12/25 I am a: Patient What is your living situation today?: I have a steady place to live Within the past 12 months, did the food you bought not last and you didn't have the money to get more?: I choose not to answer this question Within the past 12 months, did you worry whether your food would run out before you got money to buy more?: I choose not to answer this question Do you have trouble paying for medicines?: No Do you have trouble getting transportation to medical appointments?: No Do you have trouble paying your heating and electricity bill?: No Do you have trouble taking care of your child, family member or friend?: No Do you have trouble with day-to-day activities such as bathing, preparing meals, shopping, managing finances, etc.?: No Are you currently unemployed and looking for a job?: I choose not to answer this question Are you interested in more education?: I choose not to answer this question Please select the resources that you would like help with: None Currently or been in a relationship where the following occur: I choose not to answer THRIVE Score: 0 AUDIT C Alcohol Use Questionnaire (AUDIT-C) 1. How often do you have a drink containing alcohol?: Monthly or less 2. How many drinks containing alcohol do you have on a typical day when you are drinking?: 1 or 2 3. How often do you have six or more drinks on one occasion?: Never Total Score: 1 Score Reviewed/Action Taken: Yes ROSELYN-7 AMB Questionnaire ROSELYN-7 Date ROSELYN - 7 assessed: 01/12/25 Feeling nervous, anxious, or on edge: 0 = Not at all Not being able to stop or control worryin = Not at all Worrying too much about different things: 0 = Not at all Trouble relaxin = Not at all Being so restless that it is hard to sit still: 0 = Not at all Becoming easily annoyed or irritable: 0 = Not at all Feeling afraid as if something awful might happen: 0 = Not at all Total ROSELYN-7 score (0-4 normal; 5-9 mild; 10-14 moderate; 15-21 severe): 0 Source: Developed by Drs. Juan Funes, Kaela Keenan, Omkar Constantino and colleagues, with an educational carroll from [employer]. Review of Systems Const Denies chills, Denies fatigue, Denies fever(s) and Denies headache(s) ENT Denies dysphagia, Denies dizziness, Denies otalgia, Denies headache(s), Denies neck pain, Denies odynophagia and Denies sore throat Card Denies chest pain, Denies palpitations and Denies dyspnea Resp Denies chest congestion, Denies cough and Denies dyspnea GI Denies abdominal pain, Denies constipation, Denies dysphagia, Denies heartburn, Denies diarrhea, Denies nausea, Denies odynophagia and Denies vomiting Denies difficulty voiding, Denies nocturia, Denies dysuria and Denies urinary urgency Musc Denies back pain and Denies neck pain Skin/Breast Denies rash Neuro Denies dizziness and Denies headache(s) Endo Denies fatigue and Denies palpitations Physical exam (Primary Care) Vital Signs: Last Vital Signs Pulse 66 01/12/25 13:03 BP 130/72 01/12/25 13:03 Pulse Ox 94 01/12/25 13:03 Oxygen Delivery Method Room Air 01/12/25 13:03 BMI result Body Mass Index 41.7 Tobacco/Smoking Status: Tobacco use Status Tobacco use date assessed 01/12/25 01/12/25 13:07 Patient Tobacco Use Status Never used Tobacco 01/12/25 13:07 Tobacco use type Cigarette 01/12/25 13:07 e-Cigarette/Vaping Use Never Used 01/12/25 13:07 PHQ-9: PHQ-9 Score PHQ-9: Total score 3 01/12/25 13:41 Depression Screening Interpretation: Positive Depression Screening Follow-up: Follow-up Visit Requested Thrive Assessment: Date of Thrive Assessment Date Thrive assessed 01/12/25 01/12/25 13:07 Currently or been in a relationship where the following occur: I choose not to answer Const General: no acute distress and alert HENMT Ears: TM's normal bilaterally and EAC's normal Throat: Yes posterior oropharynx normal and Yes tonsils normal (no TP congestion) Neck Neck: Yes supple and No lymphadenopathy Thyroid: Thyroid normal Resp Auscultation: clear to auscultation bilaterally, no rales and no wheezes Cardio Rate: regular rate Rhythm: regular rhythm Heart sounds: no murmurs GI Palpation (GI): Soft to palpation and nontender Auscultation: normal bowel sounds General: Yes no CVA tenderness Back/Spine/Pelvis Back: no CVA tenderness Thoracic/Lumbar Spine: No lumbar spinal tenderness Skin Rashes: no rashes Extrem General: Yes no clubbing, cyanosis or edema Results Reviewed Results Reviewed: Laboratory Tests 01/07/25 08:23 TSH 1.48 Coding Level of Care Code Est Pt Level 4 (80011) Diagnoses Acquired hypothyroidism E03.9 Essential hypertension I10 Mixed hyperlipidemia E78.2 Restless leg syndrome G25.81 Overactive bladder N32.81 GERD without esophagitis K21.9 Dizziness R42 Vitamin D deficiency E55.9 Morbid obesity with BMI of 40.0-44.9, adult E66.01; Z68.41 Additional Codes PHQ-9 - 29904 - PHQ-9 Billing: Yes ([id number]) Assessment & Plan Assessment & Plan (1) Acquired hypothyroidism: Code(s): E03.9 - Hypothyroidism, unspecified Category: Medical Plan: Her serum TSH level checked a few days ago came out normal Continue Synthroid 88 mcg QD Will have patient recheck her TFTs in 4 months for follow up (2) Essential hypertension: Code(s): I10 - Essential (primary) hypertension Category: Medical Plan: Reinforced low sodium diet - goal is systolic BP of at least 130 to 140 mm or less Continue HCTZ 12.5 mg QD and Metoprolol 50 mg BID (3) Mixed hyperlipidemia: Code(s): E78.2 - Mixed hyperlipidemia Category: Medical Plan: Patient has had high cholesterol levels for years and is unable to tolerate all of the statins Rx as well as Colesevelam that she was tried on in the past due to side effects and she does not wish to be tried on any other cholesterol- lowering medications at this time Reinforced low cholesterol diet Will have patient recheck her labs and fasting lipids in 4 months for follow up (4) Restless leg syndrome: Code(s): G25.81 - Restless legs syndrome Category: Medical Plan: Continue Ropinirole 0.5 mg Q HS - Rx refilled (5) Overactive bladder: Code(s): N32.81 - Overactive bladder Category: Medical Plan: Continue Vibegron 75 mg QD Follow up with urology as scheduled (6) GERD without esophagitis: Code(s): K21.9 - Gastro-esophageal reflux disease without esophagitis Category: Medical Plan: Dietary restrictions reinforced Continue Esomeprazole 20 mg QD (7) Dizziness: Code(s): R42 - Dizziness and giddiness Category: Medical Plan: Continue Meclizine 12.5 mg TID PRN - Rx refilled (8) Vitamin D deficiency: Code(s): E55.9 - Vitamin D deficiency, unspecified Category: Medical Plan: Continue Vitamin D3 1000 units QD (9) Morbid obesity with BMI of 40.0-44.9, adult: Code(s): E66.01 - Morbid (severe) obesity due to excess calories; Z68.41 - Body mass index [BMI] 40.0-44.9, adult Category: Medical Plan: Reinforced diet/exercise as tolerated/lose weight Plan Follow up in 4 months Orders: Orders Lipid Panel 4 Months E78.00 - Pure hypercholesterolemia, unspecified Complete Blood Count Auto Diff 4 Months D64.9 - Anemia, unspecified Comprehensive [place]. Panel Fast 4 Months E78.00 - Pure hypercholesterolemia, unspecified Thyroid Stimulating Hormone 4 Months E03.9 - Hypothyroidism, unspecified Free T4 (Free Thyroxine) 4 Months E03.9 - Hypothyroidism, unspecified Vitamin D 25-OH Total 4 Months E55.9 - Vitamin D deficiency, unspecified C Reactive Protein 4 Months E78.2 - Mixed hyperlipidemia Homocysteine 4 Months E78.2 - Mixed hyperlipidemia Medications: Refilled meclizine 12.5 mg PO TID PRN 30 tabs 1RF vertigo ropinirole 0.5 mg PO DAILY 90 tabs 1RF
== END 2025-01-12 13:33 | disposition home or self-care (01) ==
LOC: HO.HMCH 13:00
PROVIDERS: PCP Internal Medicine; Visit Provider Internal Medicine
DX: E03.9 Hypothyroidism, unspecified (principal); I10 Essential (primary) hypertension; E66.01 Morbid (severe) obesity due to excess calories; Z68.41 Body mass index [BMI] 40.0-44.9, adult; E78.2 Mixed hyperlipidemia; G25.81 Restless legs syndrome; N32.81 Overactive bladder; K21.9 Gastro-esophageal reflux disease without esophagitis; R42 Dizziness and giddiness; E55.9 Vitamin D deficiency, unspecified

== ENCOUNTER → 2025-01-12 13:00 | Outpatient (BNVA) | payer MEDICARE, BC, SELFPAY | PROVIDERS: PCP Internal Medicine; Visit Provider Internal Medicine | DX: E03.9 Hypothyroidism, unspecified (principal); I10 Essential (primary) hypertension; E78.2 Mixed hyperlipidemia; G25.81 Restless legs syndrome; N32.81 Overactive bladder; K21.9 Gastro-esophageal reflux disease without esophagitis; R42 Dizziness and giddiness; E55.9 Vitamin D deficiency, unspecified; E66.01 Morbid (severe) obesity due to excess calories; Z68.41 Body mass index [BMI] 40.0-44.9, adult | CPT/HCPCS: 96127; 99212 ==

== ENCOUNTER 2025-05-13 09:19 | Outpatient (REF) | payer MEDICARE, BC, SELFPAY ==
[2025-05-13 09:34] LABS: MANUAL DIFF FLAG NO
[2025-05-13 10:45] LABS: Hematocrit 41.8 % (37.0-47.0); Hemoglobin 13.3 g/dl (12.0-16.0); Imm Gran Abs Auto 0.01 X10*3/uL (0.00-0.03); Imm Gran Pct Auto 0.2 % (0.0-0.4); Lymphocytes Absolute Auto 1.9 X10*3/uL (1.2-4.9); Mean Corpuscular HGB Conc 31.8 g/dl (31.0-35.0); Mean Corpuscular Hemoglobin 28.5 pg (27.0-33.0); Mean Corpuscular Volume 89.5 fL (80.0-98.0); NRBC Abs Auto 0.000 X10*3/uL (0.0-0.012); NRBC Pct Auto 0.0 /100WBC (0.0-0.2); Platelet Count 228 X10*3/uL (160-400); Red Blood Count 4.67 X10*6/uL (4.20-5.50); White Blood Count 5.7 X10*3/uL (4.8-10.8)
[2025-05-13 11:21] LABS: Alanine Aminotransferase 13 U/L (0-31); Albumin Level 4.2 g/dL (3.5-5.0); Alkaline Phosphatase 108 U/L (39-117); Anion Gap 16 (12-20); Aspartate Amino Transferase 24 U/L (5-31); Blood Urea Nitrogen 15 mg/dL (9-16); Calcium 9.3 mg/dL (8.4-10.2); Carbon Dioxide 27 mmol/L (22-29); Chloride 103 mmol/L (96-108); Cholesterol 289 mg/dL (<200); Estimated Glomerular Filt Rate > 60; HDL Cholesterol 59 mg/dL (>40); Potassium 3.6 mmol/L (3.3-5.1); Sodium 142 mmol/L (135-145); Total Protein 6.9 g/dL (6.5-8.0); Triglycerides 162 mg/dL (<150)
[2025-05-13 11:31] LABS: Free T4 (Free Thyroxine) 1.29 ng/dL (0.71-1.85); Thyroid Stimulating Hormone 0.79 uIU/mL (0.32-4.0)
== END 2025-05-13 09:20 | disposition home or self-care (01) ==
LOC: HO.LAB 09:19
PROVIDERS: PCP Internal Medicine; Visit Provider Internal Medicine
DX: D64.9 Anemia, unspecified (principal); E78.00 Pure hypercholesterolemia, unspecified; E03.9 Hypothyroidism, unspecified; E55.9 Vitamin D deficiency, unspecified; E78.2 Mixed hyperlipidemia
CPT/HCPCS: 36415; 80053; 80061; 82306; 83090; 84439; 84443; 85025; 86140

== ENCOUNTER 2025-05-18 11:28 | Outpatient (AMB) | payer MEDICARE, BC, SELFPAY ==
[2025-05-18 11:33] VITALS: BP 138/80; PULSE 68; RESP 18; TEMP 36.3; O2SAT 95; BMI 42.4
--- NOTE | 2025-05-18 11:33 | A.OFFPC_ITS ---
Vital Signs 05/18/25 11:33 Height 5 ft 1 in Weight 224 lb 6 oz BMI 42.4 BP 138/80 Blood Pressure Location Rt brachial Position Sitting Respiration 18 Pulse 68 Pulse Source Pulse Oximeter Temp 97.3 F Temp Source Temporal Artery Scan Pulse Oximetry (%) 95 Oxygen Delivery Method Room Air Intake Visit Reasons: hypothyroidism, hyperlipidemia Blood Bank Business Manager Required: No Accompanied by: Self / Same As Patient Allergies oxybutynin Allergy (Intermediate, Verified 05/18/25 11:57) Unknown AZALEA Inhibitors Allergy (Unknown, Verified 05/18/25 11:57) Unknown acetaminophen (From Vicodin) Allergy (Unknown, Verified 05/18/25 11:57) Unknown almond Allergy (Unknown, Verified 05/18/25 11:57) Unknown amoxicillin Allergy (Unknown, Verified 05/18/25 11:57) GI upset azithromycin Allergy (Unknown, Verified 05/18/25 11:57) Unknown colesevelam (WelChol) Allergy (Unknown, Verified 05/18/25 11:57) Unknown hydrocodone (From Vicodin) Allergy (Unknown, Verified 05/18/25 11:57) Unknown lactose Allergy (Unknown, Verified 05/18/25 11:57) Unknown [id number]-[id number]-JuR Reductase Inhibitor Adverse Reaction (Intermediate, Verified 05/18/25 11:57) myalgia, arthralgia Medication List - Last Reconciled 05/18/25 by Jeison Tierney MD cholecalciferol (vitamin D3) 25 mcg PO DAILY esomeprazole magnesium (Nexium 24HR) 20 mg PO DAILY hydrochlorothiazide 12.5 mg PO DAILY meclizine 12.5 mg PO TID PRN metoprolol tartrate 50 mg PO BID rwxhwlwo-ggfmmhg-unet-lutein 1 tab PO DAILY phenazopyridine 200 mg PO TID ropinirole 0.5 mg PO DAILY Synthroid (levothyroxine) 88 mcg PO DAILY 90 days NS Tobacco use date assessed: 05/18/25 Fall risk assessment: No Falls in past year Last assessed Fall Risk: 05/18/25 Dental Screening Dental Screen Date: 05/18/25 Did you have a dental visit in the last 12 months?: Yes Did you have a dental problem in the last 6 months where you did not have access to dental care?: No Was dental information given to patient?: Patient has dentist HPI hypothyroidism, hyperlipidemia HPI Details Patient comes in today for her follow up visit States that she feels okay She denies any headaches or increased dizziness lately Denies any chest pains, no SOB No nausea/vomiting, no abdominal pain No change in bowel habits noted She had some follow up labs done a few days ago - to discuss her results [facility] Medical History Vitamin D deficiency Morbid obesity with BMI of 40.0-44.9, adult GERD without esophagitis Overactive bladder Mixed hyperlipidemia Essential hypertension Acquired hypothyroidism Restless leg syndrome Surgical History Cardiac pacemaker History of appendectomy Family History Father Myocardial infarction Mother CHF (congestive heart failure) Social History Housing: Apartment Alcohol intake: never Patient Tobacco Use Status: Never used Tobacco Tobacco use type: Cigarette e-Cigarette/Vaping Use: Never Used Second Hand Smoke Exposure: No service: No Current occupational status: retired Cognitive needs: No Hearing needs: No Vision needs: Yes (glasses) Questionnaire Thrive Questionnaire Date Thrive assessed: 01/12/25 I am a: Patient What is your living situation today?: I have a steady place to live Within the past 12 months, did the food you bought not last and you didn't have the money to get more?: I choose not to answer this question Within the past 12 months, did you worry whether your food would run out before you got money to buy more?: I choose not to answer this question Do you have trouble paying for medicines?: No Do you have trouble getting transportation to medical appointments?: No Do you have trouble paying your heating and electricity bill?: No Do you have trouble taking care of your child, family member or friend?: No Do you have trouble with day-to-day activities such as bathing, preparing meals, shopping, managing finances, etc.?: No Are you currently unemployed and looking for a job?: I choose not to answer this question Are you interested in more education?: I choose not to answer this question Please select the resources that you would like help with: None Currently or been in a relationship where the following occur: I choose not to answer THRIVE Score: 0 AUDIT C Alcohol Use Questionnaire (AUDIT-C) 1. How often do you have a drink containing alcohol?: Never Total Score: 0 ROSELYN-7 AMB Questionnaire ROSELYN-7 Date ROSELYN - 7 assessed: 01/12/25 Feeling nervous, anxious, or on edge: 0 = Not at all Not being able to stop or control worryin = Not at all Worrying too much about different things: 0 = Not at all Trouble relaxin = Not at all Being so restless that it is hard to sit still: 0 = Not at all Becoming easily annoyed or irritable: 0 = Not at all Feeling afraid as if something awful might happen: 0 = Not at all Total ROSELYN-7 score (0-4 normal; 5-9 mild; 10-14 moderate; 15-21 severe): 0 Source: Developed by Drs. Juan Funes, Kaela Keenan, Omkar Constantino and colleagues, with an educational carroll from [employer]. Review of Systems Const Denies chills, Denies fatigue, Denies fever(s) and Denies headache(s) ENT Denies dysphagia, Denies dizziness, Denies otalgia, Denies headache(s), Denies neck pain, Denies odynophagia and Denies sore throat Card Denies chest pain, Denies palpitations and Denies dyspnea Resp Denies chest congestion, Denies cough and Denies dyspnea GI Denies abdominal pain, Denies constipation, Denies dysphagia, Denies heartburn, Denies diarrhea, Denies nausea, Denies odynophagia and Denies vomiting Denies difficulty voiding, Denies nocturia, Denies dysuria and Denies urinary urgency Musc Denies back pain and Denies neck pain Skin/Breast Denies rash Neuro Denies dizziness and Denies headache(s) Endo Denies fatigue and Denies palpitations Physical exam (Primary Care) Vital Signs: Last Vital Signs Temp 97.3 F 05/18/25 11:33 Pulse 68 05/18/25 11:33 Resp 18 05/18/25 11:33 BP 138/80 05/18/25 11:33 Pulse Ox 95 05/18/25 11:33 Oxygen Delivery Method Room Air 05/18/25 11:33 BMI result Body Mass Index 42.4 Tobacco/Smoking Status: Tobacco use Status Tobacco use date assessed 05/18/25 05/18/25 11:42 Patient Tobacco Use Status Never used Tobacco 05/18/25 11:42 Tobacco use type Cigarette 05/18/25 11:42 e-Cigarette/Vaping Use Never Used 05/18/25 11:42 Thrive Assessment: Date of Thrive Assessment Date Thrive assessed 01/12/25 05/18/25 11:42 Currently or been in a relationship where the following occur: I choose not to answer Const General: no acute distress and alert HENMT Ears: TM's normal bilaterally and EAC's normal Throat: Yes posterior oropharynx normal and Yes tonsils normal (no TP congestio n) Neck Neck: Yes supple and No lymphadenopathy Thyroid: Thyroid normal Resp Auscultation: clear to auscultation bilaterally, no rales and no wheezes Cardio Rate: regular rate Rhythm: regular rhythm Heart sounds: no murmurs GI Palpation (GI): Soft to palpation and nontender Auscultation: normal bowel sounds General: Yes no CVA tenderness Back/Spine/Pelvis Back: no CVA tenderness Thoracic/Lumbar Spine: No lumbar spinal tenderness Skin Rashes: no rashes Extrem General: Yes no clubbing, cyanosis or edema Results Reviewed Results Reviewed: Laboratory Tests 05/13/25 09:33 WBC 5.7 Hgb 13.3 Hct 41.8 Plt Count 228 Sodium 142 Potassium 3.6 Creatinine 0.70 Estimated GFR > 60 Fasting Glucose 113 H Calcium 9.3 D AST 24 ALT 13 Triglycerides 162 H Cholesterol 289 H LDL Cholesterol, Calc 198 H HDL Cholesterol 59 25-OH Vitamin D Total 41.3 Homocysteine 7.6 TSH 0.79 Free T4 1.29 Coding Level of Care Code Est Pt Level 4 (99997) Diagnoses Mixed hyperlipidemia E78.2 Essential hypertension I10 Acquired hypothyroidism E03.9 Restless leg syndrome G25.81 Overactive bladder N32.81 GERD without esophagitis K21.9 Dizziness R42 Vitamin D deficiency E55.9 Morbid obesity with BMI of 40.0-44.9, adult E66.01; Z68.41 Assessment & Plan Assessment & Plan (1) Mixed hyperlipidemia: Code(s): E78.2 - Mixed hyperlipidemia Category: Medical Plan: Results of her labs done a few days ago reviewed and discussed with patient - her cholesterol levels remain elevated and mostly unchanged from previous Patient has had high cholesterol levels for years and was unable to tolerate all of the statins Rx as well as Colesevelam that she was tried on in the past due to side effects; she still does not wish to be tried on any other cholesterol- lowering medications at this time Reinforced low cholesterol diet Will have patient recheck her labs and fasting lipids in 4 months for follow up (2) Essential hypertension: Code(s): I10 - Essential (primary) hypertension Category: Medical Plan: Reinforced low sodium diet - goal is systolic BP of at least 130 to 140 mm or less Continue HCTZ 12.5 mg QD and Metoprolol 50 mg BID (3) Acquired hypothyroidism: Code(s): E03.9 - Hypothyroidism, unspecified Category: Medical Plan: Her TFTs were normal on her recent labs Continue Synthroid 88 mcg QD Will have patient recheck her TFTs in 4 months for follow up (4) Restless leg syndrome: Code(s): G25.81 - Restless legs syndrome Category: Medical Plan: Continue Ropinirole 0.5 mg Q HS (5) Overactive bladder: Code(s): N32.81 - Overactive bladder Category: Medical Plan: Continue Vibegron 75 mg QD Follow up with urology as scheduled (6) GERD without esophagitis: Code(s): K21.9 - Gastro-esophageal reflux disease without esophagitis Category: Medical Plan: Dietary restrictions reinforced Continue Esomeprazole 20 mg QD (7) Dizziness: Code(s): R42 - Dizziness and giddiness Category: Medical Plan: Continue Meclizine 12.5 mg TID PRN (8) Vitamin D deficiency: Code(s): E55.9 - Vitamin D deficiency, unspecified Category: Medical Plan: Continue Vitamin D3 1000 units QD (9) Morbid obesity with BMI of 40.0-44.9, adult: Code(s): E66.01 - Morbid (severe) obesity due to excess calories; Z68.41 - Body mass index [BMI] 40.0-44.9, adult Category: Medical Plan: Reinforced diet/exercise as tolerated/lose weight Plan Follow up in 4 months Orders: Orders Free T4 (Free Thyroxine) 4 Months E03.9 - Hypothyroidism, unspecified Lipid Panel 4 Months E78.00 - Pure hypercholesterolemia, unspecified Thyroid Stimulating Hormone 4 Months E03.9 - Hypothyroidism, unspecified Complete Blood Count Auto Diff 4 Months D64.9 - Anemia, unspecified Comprehensive Harvest. Panel Fast 4 Months E78.00 - Pure hypercholesterolemia, unspecified
== END 2025-05-18 12:13 | disposition home or self-care (01) ==
LOC: HO.HMCH 11:29
PROVIDERS: PCP Internal Medicine; Visit Provider Internal Medicine
DX: E78.2 Mixed hyperlipidemia (principal); I10 Essential (primary) hypertension; E03.9 Hypothyroidism, unspecified; G25.81 Restless legs syndrome; N32.81 Overactive bladder; K21.9 Gastro-esophageal reflux disease without esophagitis; R42 Dizziness and giddiness; E55.9 Vitamin D deficiency, unspecified; E66.01 Morbid (severe) obesity due to excess calories; Z68.41 Body mass index [BMI] 40.0-44.9, adult

== ENCOUNTER → 2025-05-18 11:28 | Outpatient (BNVA) | payer MEDICARE, BC, SELFPAY | PROVIDERS: PCP Internal Medicine; Visit Provider Internal Medicine | DX: E78.2 Mixed hyperlipidemia (principal); E03.9 Hypothyroidism, unspecified; I10 Essential (primary) hypertension; G25.81 Restless legs syndrome; N32.81 Overactive bladder; K21.9 Gastro-esophageal reflux disease without esophagitis; R42 Dizziness and giddiness; E55.9 Vitamin D deficiency, unspecified; E66.01 Morbid (severe) obesity due to excess calories; Z68.41 Body mass index [BMI] 40.0-44.9, adult; Z71.3 Dietary counseling and surveillance | CPT/HCPCS: 99212 ==